=== PATIENT | female | born 1960 | race Caucasian/White ===

== ENCOUNTER → 2020-01-06 | Outpatient (CLI) | payer OTHER, MEDICARE ==
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
== END ==
LOC: M PAIN 13:00
PROVIDERS: ATTEND Nurse Practitioner Family
DX: M96.1 Postlaminectomy syndrome, not elsewhere classified (principal); M79.18 Myalgia, other site; M79.7 Fibromyalgia; K21.9 Gastro-esophageal reflux disease without esophagitis; E03.9 Hypothyroidism, unspecified; E11.9 Type 2 diabetes mellitus without complications; M54.16 Radiculopathy, lumbar region; J30.2 Other seasonal allergic rhinitis; M54.12 Radiculopathy, cervical region; Z79.891 Long term (current) use of opiate analgesic; Z79.84 Long term (current) use of oral hypoglycemic drugs; Z79.899 Other long term (current) drug therapy

== ENCOUNTER → 2020-03-07 | Outpatient (CLI) | payer MEDICARE ==
--- NOTE | 2020-03-09 03:28 | ECWPNPC ---
PATIENT NAME: VALENTINO DAY : 1960 GENDER: FEMALE VISIT DATE: 03/07/2020 DISCHARGE DATE: 03/07/20 1208 VISIT LOCKED DATE TIME: PHYSICIAN: AUDREY ROMERO RESOURCE: AUDREY ROMERO REASON FOR APPOINTMENT 1. MEDICATION MANAGEMENT/URINE TOX HISTORY OF PRESENT ILLNESS DEPRESSION SCREENING: PHQ-2 (2015 EDITION) LITTLE INTEREST OR PLEASURE IN DOING THINGS?NOT AT ALL FEELING DOWN, DEPRESSED, OR HOPELESS?NOT AT ALL TOTAL SCORE0 GENERAL: HERE FOR FOLLOW-UP OF PERSISTENT LOW BACK AND NECK PAIN. THIS IS A MEDICATION MANAGEMENT VISIT AFTER INITIAL VISIT 2 MONTHS AGO. FINDS CURRENT CHRONIC PAIN MEDICATION HELPFUL AT REDUCING PAIN AND KEEPING HER FUNCTIONAL. DENIES ADVERSE SIDE EFFECTS. BRINGS IN HER MEDICATION WHICH DEMONSTRATES SHE IS USING IT APPROPRIATELY. AT THIS POINT SHE WOULD LIKE TO KEEP HER MEDICATION IT IS AND WOULD CONSIDER INJECTIONS IN THE FUTURE IF NECESSARY BUT RIGHT NOW FEELS SHE IS DOING OKAY. SHE WILL BE HAVING RIGHT SHOULDER SURGERY IN THE NEAR FUTURE. -. FALL RISK SCREENING: SCREENING :NO FALLS REPORTED IN THE LAST YEAR PAIN SCREENING: PATIENT HAS A COMPLAINT OF ACUTE OR CHRONIC PAIN :YES LOCATION OF PAIN:UPPER BACK, MID BACK, LOW BACK INTENSITY OF PAIN (SCALE OF 1 TO 10):7 WHAT DOES YOUR PAIN FEEL LIKE:ACHING DURATION:CONTINOUS, CONSTANT, ALL DAY PAIN IS INCREASED BY:ACTIVITIES PAIN IS DECREASED BY:USE OF PAIN MEDICATIONS, OTHERS HEATING PAD TREATMENT/MEDICATIONS USED TO MANAGE PAIN:OPIOIDS LEVEL OF RELIEF FROM PAIN TREATMENTS IN THE PAST:25% PAIN HAS INTERFERED WITH THE FOLLOWING:WALKING ABILITY, SLEEP NURSING NOTE: -. PAIN CENTER INTAKE QUESTIONS: DO YOU HAVE A HISTORY OF MRSA? :NO DO YOU TAKE A BLOOD THINNERS? :NO DO YOU HAVE ANY BLEEDING DISORDERS? :NO ANY NEW NUMBNESS OR WEAKNESS IN YOUR LEGS OR ARMS? :NO ANY PACEMAKER,DEFIBRILLATOR, OR DORSAL COLUMN STIMULATOR? :NO DO YOU HAVE ANY RASHES OR OPEN SORES? :NO ARE YOU ALLERGIC TO IV DYE? :NO ARE YOU DIABETIC? :YES ANY NEW PROBLEMS WITH YOUR MEDICATIONS? :NO HAVE YOU RECEIVED A VACCINE IN THE PAST 30 DAYS? :NO DO YOU PLAN TO RECEIVE A VACCINE IN THE NEXT 21 DAYS? :NO DO YOU NEED ANY PRESCRIPTION? :YES BACLOFEN AND HYDROCODONE DO YOU TAKE ANY IMMUNOSUPPRESSIVE MEDICATIONS? :NO IS THERE A CHANCE YOU COULD BE ? :NO ARE YOU BREAST FEEDING? :NO CURRENT MEDICATIONS TAKING TRAZODONE HCL 100 MG TABLET 1 TABLET AT BEDTIME ORALLY ONCE A DAY TAKING DILTIAZEM HCL ER BEADS 180 MG CAPSULE EXTENDED RELEASE 24 HOUR 1 CAPSULE ORALLY ONCE A DAY TAKING FLECAINIDE ACETATE 100 MG TABLET DIRECTED ORALLY BID TAKING OMEPRAZOLE 20 MG CAPSULE DELAYED RELEASE 1 CAPSULE 30 MINUTES BEFORE MORNING MEAL ORALLY ONCE A DAY TAKING LEVOTHYROXINE SODIUM 150 MCG TABLET 1 TABLET IN THE MORNING ON AN EMPTY STOMACH ORALLY ONCE A DAY TAKING ZYRTEC ALLERGY 10 MG TABLET 1 TABLET ORALLY ONCE A DAY TAKING SUMATRIPTAN SUCCINATE 100 MG TABLET 1 TABLET AT LEAST 2 HOURS BETWEEN DOSES NEEDED ORALLY ONCE A DAY TAKING NAPROXEN 500 MG TABLET 1 TABLET WITH FOOD OR MILK NEEDED ORALLY 1 NEEDED TAKING VENTOLIN HFA 108 (90 BASE) MCG/ACT AEROSOL SOLUTION 1 PUFF NEEDED INHALATION 3 TIMES A DAY TAKING CICLOPIROX 8 % SOLUTION 1 APPLICATION EXTERNALLY ONCE A DAY TAKING SYMBICORT 160-4.5 MCG/ACT AEROSOL 2 PUFFS INHALATION TWICE A DAY TAKING HYOSCYAMINE SULFATE 0.125 MG TABLET DISINTEGRATING 1 TABLET ON THE TONGUE AND ALLOW TO DISSOLVE NEEDED ORALLY EVERY 4 HRS TAKING HYDROCODONE-ACETAMINOPHEN 10-325 MG TABLET 1 TABLET NEEDED ORALLY EVERY 6 HRS WHEN NECESSARY FOR PAIN MDD 4 TAKING BACLOFEN 10 MG TABLET 1 TABLET WITH FOOD OR MILK ORALLY THREE TIMES A DAY NOT-TAKING LASIX 20 MG TABLET 1 TABLET ORALLY ONCE A DAY NOT-TAKING METFORMIN & DIET MANAGE PROD 100MG ORALLY 2 @ AM, 1 @ PM MEDICATION LIST REVIEWED AND RECONCILED WITH THE PATIENT PAST MEDICAL HISTORY CERVICAL RADICULOPATHY LUMBAR RADICULOPATHY FIBROMYALGIA CHRONIC NECK PAIN CHRONIC LOW BACK PAIN GERD HYPOTHYROIDISM DM ALLERGIES SEASONAL: SNEEZING - ALLERGY STEROIDS: ALLERGY SURGICAL HISTORY ACDF C4/C5 C5/C6 LAMINECTOMY AND DISCECTOMY L5/S1 02/2008 CHOLECYSTECTOMY THYROIDECTOMY REPAIR OF DEVIATED SEPTUM C-SECTIONS X2 LEFT KNEE REPLACEMENT PROUD FLESH REMOVED FROM LEFT THUMB FAMILY HISTORY FATHER: MOTHER: 3 SISTER(S) . 2DAUGHTER(S) - HEALTHY. SOCIAL HISTORY GENERAL: TOBACCO USE ARE YOU A:NONSMOKER LATEX QUESTIONNAIRE LATEX ALLERGY : HAVE YOU EVER DEVELOPED ANY TYPE OF REACTION AFTER HANDLING LATEX PRODUCTS SUCH RUBBER GLOVES, CONDOMS, DIAPHRAGMS, BALLOONS, SOCKS, OR UNDERWEAR?NO LATEX ALLERGY : HAVE YOU EVER DEVELOPED ANY TYPE OF REACTION DURING OR AFTER DENTAL APPOINTMENT, VAGINAL/RECTAL EXAMINATION, SURGICAL PROCEDURE, OR ANY OTHER EXPOSURE?NO LATEX RISK : HAVE YOU EVER HAD ANY DIFFICULTY BREATHING OR HIVES AFTER EATING OR HANDLING ANY FRUITS, OR VEGETABLES; SUCH KIWI, BANANAS, STONE FRUITS, OR CHESTNUTSNO LATEX RISK : DO YOU HAVE A PREVIOUS PERSONAL HISTORY OF MORE THAN NINE SURGERIES, SPINA BIFIDA, OR REPEATED CATHERIZATIONS? NO LATEX RISK : ARE YOU FREQUENTLY EXPOSED TO LATEX PRODUCTS IN YOUR OCCUPATION?NO DATE ASKED : 03/07/2020 ALCOHOL SCREENING DID YOU HAVE A DRINK CONTAINING ALCOHOL IN THE PAST YEAR?NO POINTS0 INTERPRETATIONNEGATIVE RECREATIONAL DRUG USE DRUG USE?NO LANGUAGE LANGUAGES SPOKEN:CROATIAN LEARNING BARRIERS / SPECIAL NEEDS BARRIERS TO LEARNING?NO HEARING IMPAIRED?NO VISION IMPAIRED?YES :CORRECTIVE LENSES COGNITIVELY IMPAIRED?NO READINESS TO LEARN?YES LEARNING PREFERENCES?NO LEARNING CAPABILITIES PRESENT?YES EMOTIONAL BARRIERS?NO SPECIAL DEVICES?NO DOMESTIC VIOLENCE DO YOU FEEL SAFE IN YOUR ENVIRONMENT?YES PAIN CLINIC PFS, CLERGY, PUBLIC HEALTH REFERRALS HAS THE PATIENT BEEN EDUCATED REGARDING HIS/HER PLAN OF CARE?YES HAS THE PATIENT BEEN EDUCATED REGARDING PAIN, THE RISK FOR PAIN, THE IMPORTANCE OF EFFECTIVE PAIN MANAGEMENT, AND THE PAIN ASSESSMENT PROCESS?YES ADVANCE DIRECTIVE ADVANCE DIRECTIVE DISCUSSED WITH PATIENT:YES DELINED PAPERWORK HOSPITALIZATION/MAJOR DIAGNOSTIC PROCEDURE SURGERY RELATED REVIEW OF SYSTEMS CONSTITUTIONAL: ANY RECENT FEVER NO . CHILLS NO . WEIGHT CHANGE OF UNKNOWN REASONS NO . GASTROENTEROLOGY: NEW UNEXPLAINABLE CHANGES IN BOWEL CONTROL NO . CONSTIPATION NO . GENITOURINARY: ANY NEW CHANGE IN BLADDER CONTROL? NO . NEUROLOGY: NEW ONSET DIZZINESS OR NEUROLOGICAL CHANGES NOT MENTIONED NO . NEW NUMBNESS OR PAIN PATTERNS NOT MENTIONED AND PERTINENT TO TODAY'S VISIT NO . CARDIOLOGY: NEW CHEST PRESSURE NO . NEW CHEST PAIN NO . RESPIRATORY: UNEXPLAINABLE COUGH NO . NEW SHORTNESS OF BREATH NO . VITAL SIGNS WT 269 LBS, HT 69.34 IN, BMI 39.33 INDEX, BP 128/80 MM HG, HR 83 /MIN, RR 18 /MIN, TEMP 97.5 F, OXYGEN SAT % 98%, SAFE IN ENV? (Y/N) YES, NA INITIALS GA 11:14, REVIEWED BY: TORRES MARCOS. EXAMINATION GENERAL EXAMINATION: GENERALAWAKE,ALERT ,PLEASANT . PSYCHAFFECT NORMAL . LUNGS:LUNG MOLINA ARE CLEAR TO AUSCULTATION BILATERALLY. GOOD MOVEMENT OF AIR . HEART:S1, S2 IN A REGULAR RATE AND RHYTHM. NO SIGNIFICANT MURMURS, RUBS OR GALLOPS NOTED . ASSESSMENTS POST LAMINECTOMY SYNDROME - M96.1 (PRIMARY) CHRONIC PRESCRIPTION OPIATE USE - Z79.891 MYALGIA, OTHER SITE - M79.18 TREATMENT POST LAMINECTOMY SYNDROME REFILL HYDROCODONE-ACETAMINOPHEN TABLET, 10-325 MG, 1 TABLET NEEDED, ORALLY, EVERY 6 HRS WHEN NECESSARY FOR PAIN MDD 4, 30 DAYS, 120, REFILLS 0 NOTES: ISTOP REGISTRY REVIEWED AND DEMONSTRATES COMPLLIANCE. BRINGS IN MEDICATIONS WHICH IS APPROPRIATE FOR WHAT WAS DISPENSED. URINE TOXICOLOGY TODAY , RISKS OF NARCOTIC/OPIOD MEDICATIONS INCLUDES BUT IS NOT LIMITED TO RISK OF DEPENDANCE/DEVELOPMENT OF ADDICTION, MOOD DISTURBANCE AND DEPRESSION, OSTEOPOROSIS, HORMONAL AND LABIDAL CHANGES, RESPIRATORY DEPRESSION AND . PATIENT IS ADVISED NOT TO DRIVE OR DRINK ALCOHOL WHILE ON THESE MEDICATIONS. PROCEDURE CODES FA211 ESTABILISHED PATIENT [facility] CHARGE DISPOSITION & COMMUNICATION FOLLOW UP 3 MONTHS (REASON: MEDICATION MANAGEMENT/REVIEW URINE TOXICOLOGY) ELECTRONICALLY SIGNED BY NELLY ANDINO ON 03/08/2020 AT 11:03 AM EST DISCLAIMER : THIS IS A VISIT SUMMARY EXTRACTED FROM THE [employer] CHART. IT IS NOT A COPY OF THE [employer] PROGRESS NOTE. JENNA
== END ==
LOC: M PAIN 11:00
PROVIDERS: ATTEND Nurse Practitioner Family
DX: M96.1 Postlaminectomy syndrome, not elsewhere classified (principal); M79.18 Myalgia, other site; M79.7 Fibromyalgia; K21.9 Gastro-esophageal reflux disease without esophagitis; E03.9 Hypothyroidism, unspecified; E11.9 Type 2 diabetes mellitus without complications; J30.2 Other seasonal allergic rhinitis; M54.16 Radiculopathy, lumbar region; M54.12 Radiculopathy, cervical region; Z79.891 Long term (current) use of opiate analgesic; Z79.899 Other long term (current) drug therapy; Z88.8 Allergy status to other drugs, medicaments and biological substances

== ENCOUNTER → 2020-03-07 | Outpatient (CLI) | payer MEDICARE ==
[~2020-03-07] MED LIST: BACL10TA8 PO; CICL0.7739 TOP; DILT180C28 PO; FLEC1TAB PO; FURO20TA2 PO; HYDR-4517 PO; HYOS125TA SL; METF-839 PO; NAPR-885 PO; OMEP-218 PO; SUMA100T2 PO; SYMB16INH INH; TRAZ-257 PO
--- NOTE | 2020-03-09 16:05 | SLEEPHOME ---
DATE: 03/07/2020 ORDERED BY: Dr. Spencer Diagnostic home sleep testing was performed due to concern for the obstructive sleep apnea syndrome in this patient with a history of snoring. For testing, a nocturnal T3 respiratory monitoring device was used. Continuous record was made of pulse, oxygen saturation, air flow, chest and abdominal strain, and body position. There was 9 hours and 59 minutes of data reviewed. There was 8 hours and 27 minutes marked as time in bed. During the interval marked time in bed, there were 218 respiratory events identified of 10 seconds in duration or greater for an respiratory event index of 25.8. The events were primarily obstructive. Baseline pulse rate 91. Pulse rate ranged as high as 199. Baseline saturation 88%. Saturations fell to 81%. Testing was performed in both the supine and nonsupine positions. IMPRESSION: Abnormal home sleep testing with repetitive respiratory events and oxygen desaturations to 81% with a respiratory event index of 25.8 is consistent with the obstructive sleep apnea syndrome. RECOMMENDATION: The patient should be encouraged to undergo formal sleep evaluation.
== END ==
LOC: M SLEEP HO 12:43
PROVIDERS: ATTEND Internal Medicine Cardiovascular Disease
DX: R06.83 Snoring (principal)
CPT/HCPCS: G0399; G0463

== ENCOUNTER → 2020-03-12 | Outpatient (CLI) | payer MEDICARE | LOC: M LABSMTC 09:27 | PROVIDERS: ATTEND Anesthesiology | DX: Z01.812 Encounter for preprocedural laboratory examination (principal); Z20.822 Contact with and (suspected) exposure to COVID-19 ==

== ENCOUNTER 2020-03-17 12:33 | Day surgery (SDC) | payer MEDICARE ==
[~2020-03-17] VITALS: Ht 175.3 cm; Wt 124.7 kg
--- OUTSIDE RECORDS SUMMARY | 2020-03-17 12:37 | CCD ---
Author Author [employer] [facility] Organization [employer] [facility] Address Unknown Phone Unavailable Care Team Providers Care Assembly Associate Name Role Phone Ana Carpenter Unavailable PROBLEMS Type Condition ICD9-CM Code [id number] Code Onset Dates Condition S tatus SNOMED Code Notes Problem Post laminectomy syndrome M96.1 Active [id number] [id number] ALLERGIES Allergen (clinical drug ingredient) Drug/Non Drug Allergy do cumented on EMR Reaction Allergy Type Onset Date Status seasonal sneezing Non Drug Allergy Active ENCOUNTERS from 1960 to 2020-01-07 Encounter Location Date Provider Diagnosis [facility] [address] [place] [id number] Dec, Ana Carpenter Post laminectomy syndrome M96.1 ; Chroni c prescription opiate use Z79.891 and Myalgia, other site M79.18 IMMUNIZATIONS No Information SOCIAL HISTORY Tobacco Use: Social History Observation Description Date Details (start date - stop date) Never Smoker Sex Assigned At : Social History Observation Description Sex Assigned At Unknown Language: Question Answer Notes Languages spoken: Tajik Alcohol Screening: Question Answer Notes Did you have a drink containing alcohol in the past year? No Points 0 Interpretation Negative Tobacco Use: Question Answer Notes Are you a: never smoker REASON FOR REFERRAL No Information VITAL SIGNS Weight 271 lbs Dec, Height 69.34 in Dec, BMI 39.62 kg/m2 Dec, Heart Rate 78 /min Dec, Respiratory Rate 16 /min Dec, Temperature 97.5 degrees Fahrenheit Dec, Oximetry 96 Dec, Blood pressure systolic 136 mm Hg Dec, Blood pressure diastolic 77 mm Hg Dec, MEDICATIONS Medication SIG (Take, Route, Frequency, Duration) Start Date En d Date Status Lasix 20 MG 1 tablet Orally Once a day for 30 day(s) Active Levothyroxine Sodium 150 MCG 1 tablet in the morning o n an empty stomach Orally Once a day for 30 day(s) Active Hyoscyamine Sulfate 0.125 MG 1 tablet on the tongue an d allow to dissolve as needed Orally every 4 hrs Active Metformin & Diet Manage Prod 100mg orally 2 @ am, 1 @ PM Active Ciclopirox 8 % 1 application Externally Once a day Active Hydrocodone-Acetaminophen 10-325 MG 1 tablet as needed Orally every 6 hrs when necessary for pain MDD 4 for 30 Days Dec, Act gabino TraZODone HCl 100 MG 1 tablet at bedtime Orally Once a day for 30 d ay(s) Active Naproxen 500 MG 1 tablet with food or milk as needed Orally every 1 2 hrs Active Sumatriptan Succinate 100 MG 1 tablet at least 2 hours between doses as needed Orally Twice a day Active Symbicort 160-4.5 MCG/ACT 2 puffs Inhalation Twice a day Active Flecainide Acetate 100 MG as directed Orally bid Active Diltiazem HCl ER Beads 180 MG 1 capsule Orally Once a day for 30 da y(s) Active Zyrtec Allergy 10 MG 1 tablet Orally Once a day for 30 day(s) Active Ventolin HFA 108 (90 Base) MCG/ACT 1 puff as needed Inhalation ever y 4 hrs Active Baclofen 10 MG 1 tablet with food or milk Orally Three times a day for 30 Days Active Omeprazole 20 MG 1 capsule 30 minutes before morning meal Orally Once a day for 30 day(s) Active PROCEDURES No Information RESULTS No Results REASON FOR VISIT CHRONIC PAIN MEDICAL (GENERAL) HISTORY Type Description Date Medical History cervical radiculopathy Medical History lumbar radiculopathy Medical History fibromyalgia Medical History Chronic Neck Pain Medical History Chronic Low Back Pain Medical History GERD Medical History Hypothyroidism Medical History DM Surgical History ACDF C4/C5 C5/C6 Surgical History Laminectomy and Discectomy L5/S1 02/2008 Surgical History cholecystectomy Surgical History thyroidectomy Surgical History repair of deviated septum Surgical History C-sections x2 Surgical History Left knee replacement Surgical History Proud flesh removed from left thumb Hospitalization History surgery related Goals Section No Information Health Concerns No Information MEDICAL EQUIPMENT No Information MENTAL STATUS No Information FUNCTIONAL STATUS No Information ASSESSMENTS Encounter Date Diagnosis Notes Dec, Myalgia, other site (ICD-10 - M79.18) Dec, Chronic prescription opiate use (ICD-10 - Z79.891) Dec, Post laminectomy syndrome (ICD-10 - M96. 1) PLAN OF TREATMENT Medication Medication Name Sig Start Date Stop Date Baclofen 10 MG 1 tablet with food or milk Orally Three times a day for 30 Days Hydrocodone-Acetaminophen 10-325 MG 1 tablet as needed Orally every 6 hrs when necessary for pain MDD 4 for 30 Days Dec, Treatment Notes Assessment Notes Clinical Notes Post laminectomy syndrome I've agreed to take over andi n medication management. Discussed clinic policies on chronic prescription opioid use. Narcotic agreement is reviewed and signed. Follow-up is scheduled in 2 months.DO PHQ2 AT F/U APT ON 03/07/2020 Next Appt Details 2 Months Reason:medication management/ur ine tox Provider Name:Ana Carpenter, 2020-03-07 11 :00:00 AM, [address], [place], [id number], Follow Up:2 Monthsmedication management/urine tox Insurance Providers Payer Name Payer Address Payer Phone Insured Name Patient Relati onship to Insured Coverage Start Date Coverage End Date [employer] [id number] [facility] [id number] VAL[address] DAY MEDICARE Part A and B [address] [facility] [id number] [phone] VALENTINO DAY
--- OUTSIDE RECORDS SUMMARY | 2020-03-17 12:37 | CCD ---
Continuity of Care Document (CCD) Created on: 01/29/2020 Dorothea Moore External Reference #: [id number] : [id number] Sex: Female Author Author Dorothea BLOCK FILTRATION PLANT MECHANIC Organization Unknown Address [address] [place] [address] Phone [phone] Care Team Providers Care Cuff Slitter Name Role Phone Álvaro López AUTM [phone] [facility] Nurse Practitioners - Dermatology AUTM [phone] [facility] - Ophthalmic AUTM [phone] [facility] - Cardiovascular Disease AUTM [phone] Karin Jamison M.D. AUTM [phone] Problems Active Problems Provider Date Type 2 diabetes mellitus Rossana Block FNP Onset: 020 Hypothyroidism Rossana Block FILTRATION PLANT MECHANIC Onset: 01/20/2020 Mild intermittent asthma Rossana Block FILTRATION PLANT MECHANIC Onset: 020 Paroxysmal supraventricular tachycardia Rossana Block FILTRATION PLANT MECHANIC Onset: 01/20/2020 Fibromyalgia Rossana Block FILTRATION PLANT MECHANIC Onset: 01/20/2020 Social History Type Date Description Comments Sex Unknown Tobacco Use Start: Unknown Never Used Smokeless Tobacco ETOH Use Denies alcohol use Tobacco Use Start: Unknown End: Patient is a former smoker 4 year hx total Recreational Drug Use Denies Drug Use Smoking Status Reviewed: 01/18/20 Patient is a former smoker 4 year hx total Exercise Type/Frequency Exercises regularly Tattoo/Piercing Pierced ears Sun Exposure Moderate amount of sun exposure Sun Exposure Has experienced blistering from sunburns Sun Exposure History of sunburn Sun Exposure Uses sunscreen Sun Exposure Uses greater than 30 SPF Sun Exposure Does not use tanning beds Seat Belt/Car Seat Always uses seat belt Smoke Alarms Yes Smoke Alarms Carbon Monoxide Detector: Yes Allergies, Adverse Reactions, Alerts Active Allergies Reaction Severity Comments Date Penicillins Difficulty breathing, Diffic ulty swallowing, Facial swelling, hand swelling Severe 01/18/2020 Biaxin Diarrhea Severe 01/18/2020 Medications Active Medications SIG Qnty Indications Ordering Provide r Date Symbicort 160-4.5mcg/Act Aerosol 2 puff twice a day 18gm J45.20 Rossana Block FNP 01/18/2020 Hydrocodone-Acetaminophen 10-325mg Tablets 1 tab by mouth every 6 hours if needed for pain Unknown Baclofen 10mg Tablets take 1 tablet by mouth every 8 hours as needed for muscle spasm U nknown Trazodone HCL 100mg Tablets 1 tab by mouth every night at bedtime 90tabs Rossana Block FNP 00/ Metformin HCL XR 500mg 2 tabs by mouth in the morning and 1 tab by mouth in evening Unknow n Diltiazem HCL ER 180mg Caps ER 24H R 1 by mouth every day 90caps Rossana Block FNP Flecainide Acetate 100mg Tablets take one tablet by mouth twice a day 180tabs Rossana Block FNP Omeprazole 20mg Capsules DR 1 by mouth twice a day 180caps Rossana Block FNP Levothyroxine Sodium 150mcg Tablet s 1 by mouth every day 90tabs Rossana Block FNP Furosemide 20mg Tablets take one tablet by mouth every day in the morning Unknown 0 Zyrtec Allergy 10mg Capsules 1 by mouth every day Unknown Sumatriptan Succinate 100mg Tablet s one tab by mouth at onset of headache, repeat once in one hour if needed 30tabs Rossana Block FNP Naproxen 500mg Tablets take 1 tab by mouth twice a day with food as needed for pain Unknown Ventolin HFA 108(90Base) mcg/Act A erosol 2 puffs every 4 hours as needed Unknown Ciclopirox Olamine 0.77% Cream apply twice a day to the affected areas of breast as needed Unknown Hyoscyamine Sulfate 0.125mg Tablet s 1 tabs by mouth q8 hours as needed Unknown Immunizations Description No Information Available Vital Signs Date Vital Result Comment 01/18/2020 9:32am BP Systolic 119 mmHg BP Diastolic 75 mmHg Heart Rate 75 /min Body Temperature 97.8 F Respiratory Rate 17 /min Height 69.75 inches 5'9.75" Weight 275.12 lb O2 % BldC Oximetry 99 % Peak Expiratory Flow Rate 379 Estimated Peak Flow Rate [place] Body Weight 145 lb BMI (Body Mass Index) 39.8 kg/m2 Results Description No Information Available Procedures Date Code Description Status 08/26/2019 461629575 Diabetic Foot Exam Completed Medical Devices Description No Information Available Encounters Type Date Location Provider Dx Diagnosis Office Visit 01/18/2020 10:00a Main Office Rossana Block, FILTRATION PLANT MECHANIC E11.9 Type 2 diabetes mellitus without complications E03.9 Hypothyroidism, unspecified J45.20 Mild intermittent asthma, un complicated K21.9 Gastro-esophageal reflux dis ease without esophagitis G43.909 Migraine, unsp, not intracta ble, without status migrainosus K58.2 Mixed irritable bowel syndro me I47.1 Supraventricular tachycardia Z85.828 Personal history of other ma lignant neoplasm of skin M79.7 Fibromyalgia Z13.89 Encounter for screening for other disorder Assessments Date Code Description Provider 01/18/2020 E11.9 Type 2 diabetes mellitus without complications Rossana Block, FILTRATION PLANT MECHANIC 01/18/2020 E03.9 Hypothyroidism, unspecified Ples Rossana rocha, FILTRATION PLANT MECHANIC 01/18/2020 J45.20 Mild intermittent asthma, uncomp licated PleRossana curtis, FILTRATION PLANT MECHANIC 01/18/2020 K21.9 Gastro-esophageal reflux disease without esophagitis Rossana Block, FILTRATION PLANT MECHANIC 01/18/2020 G43.909 Migraine, unspecifie d, not intractable, without status migrainosus PleRossana curtis, FILTRATION PLANT MECHANIC 01/18/2020 K58.2 Mixed irritable bowel syndrome P lesRossana rocha, FILTRATION PLANT MECHANIC 01/18/2020 I47.1 Supraventricular tachycardia Ple skRossana najera, FILTRATION PLANT MECHANIC 01/18/2020 Z85.828 Personal history of other malign ant neoplasm of skin Rossana Block FNP 01/18/2020 M79.7 Fibromyalgia Rossana Block FNP 01/18/2020 Z13.89 Encounter for screening for othe r disorder Rossana Block FNP Plan of Treatment Future Appointment(s):* 07/19/2020 10:30 am - Rossana Block FNP at Main Office 01/18/2020 - Rossana Block FNP* E11.9 Type 2 diabetes mellitus without complications* Comments:* per patient, well controlled, last A1C was under 6. Continue metformin and recheck A1C and microalbumin at next visit. Patient follows with podiatry for diabetic foot care, will need local referral. * Follow up:* 6 months with labs * E03.9 Hypothyroidism, unspecified* Comments:* continue levothyroxine, check labs at next visit * J45.20 Mild intermittent asthma, uncomplicated* New Medication:* Symbicort 160-4.5 mcg/Act - 2 puff twice a day * Comments:* controlled on symbicort, using ventolin as needed which is rare. * K21.9 Gastro-esophageal reflux disease without esophagitis* Comments:* well controlled with omeprazole * G43.909 Migraine, unspecified, not intractable, without status migrainosus* Comments:* patient reports average of one a month, relieved with sumatriptan and naproxen * K58.2 Mixed irritable bowel syndrome* Comments:* using hyoscyamine with effect. Has had GI consult, testing and colonoscopy in the recent past - all normal * I47.1 Supraventricular tachycardia* Comments:* follows with cardiology, will need local referral * Z85.828 Personal history of other malignant neoplasm of skin* Comments:* follows annually with dermatology, will need local referral * M79.7 Fibromyalgia* Comments:* established with pain clinic * Z13.89 Encounter for screening for other disorder Functional Status Functional Condition Comment Date Status Glasses otc readers Active Independent with all ADL's Activ e Independent with all IADL's Acti ve Mental Status Mental Condition Comment Date Status None Active Can Understand Information Activ e Referrals Refer to Reason for Referral Status Appt Karin Arambula M.D. needs to establish with help desk intern for issues of pain during intercourse per telephone call from pt Sent [address] [address] [phone] [facility] hx of svt, pt just rel[place] to [place] and needs to establish with a dimpling machine operator Sent [address] [place] [address] [place] [address] [phone] Álvaro López needs to establish with sephora operations consultant for d iabetic foot care Scheduled 02/29/2020 [address] [place] [address] [phone] [facility] Nurse Practitioners personal hx of malignant neoplasm Sent 03/08/2020 [address] [facility] [address], [address] [place] [address] [phone] [facility] pt needs to esta blish with opthamologist for diabetic eye exam Sent [address] [address] [phone]
--- OUTSIDE RECORDS SUMMARY | 2020-03-17 12:37 | CCD | Continuity of Care Document ---
Author Author Dorothea LÓPEZ DPM Organization Unknown Address [address] [facility], [address] [place] [address] Phone [phone] Care Team Providers Care Supervisor Water Softener Service Name Role Phone Jerilyn Block AUTM [phone] Problems Description No Information Available Social History Type Date Description Comments Sex Unknown ETOH Use Denies alcohol use Tobacco Use Start: Unknown End: Unknown Patient is a former smoker Allergies, Adverse Reactions, Alerts Active Allergies Reaction Severity Comments Date Penicillins 02/29/2020 Biaxin 02/29/2020 Medications Active Medications SIG Qnty Indications Ordering Provide r Date Metformin HCL ER 500mg Tablets ER 24HR Take 2 Tablets By Mouth Every Morning And Take 1 Tablet By Mouth Every Evening Unknown Furosemide 20mg Tablets Take 1 Tablet By Mouth Every Day In The Morning Unknown 0 Baclofen 10mg Tablets Take 1 Tablet By Mouth Three Times Daily With Food Or Milk Unknow n Sumatriptan Succinate 100mg Tablet s TK 1 T PO Aos Of Headache. Repeat 1 Time In 1 Hour If Needed. MDD 2 Tablets Unknown Levothyroxine Sodium 150mcg Tablet s TK 1 T PO qd Unknown Flecainide Acetate 100mg Tablets TK 1 T PO bid Unknown Dilt-XR 180mg Caps ER 24HR TK 1 C PO qd Unknown Omeprazole 20mg Capsules DR TK 1 C PO bid Unknown Trazodone HCL 100mg Tablets TK 1 T PO QHS Unknown Hydrocodone-Acetaminophen 10-325mg Tablets TK 1 T PO Q 6 H PRF Pain. MDD 4 TS Unknow n Immunizations Description No Information Available Vital Signs Date Vital Result Comment 02/29/2020 8:42am Height 69.75 inches 5'9.75" Weight 275.00 lb BP Systolic 119 mmHg BP Diastolic 75 mmHg Heart Rate 75 /min BMI (Body Mass Index) 39.7 kg/m2 Results Description No Information Available Procedures Description No Information Available Medical Devices Description No Information Available Encounters Description No Information Available Assessments Description No Information Available Plan of Treatment Future Appointment(s):* 02/28/2021 3:15 pm - Álvaro López DPM at [place] Office Functional Status Description No Information Available Mental Status Description No Information Available Referrals Description No Information Available
--- OUTSIDE RECORDS SUMMARY | 2020-03-17 12:37 | CCD | Continuity of Care Document ---
Author Author Dorothea BLOCK BEARING RING ASSEMBLER Organization Unknown Address [address] [place] [address] Phone [phone] Care Team Providers Care Contact Center Professional Name Role Phone Álvaro López AUTM [phone] [facility] Nurse Practitioners - Dermatology AUTM [phone] [facility] - Ophthalmic AUTM [phone] [facility] - Cardiovascular Disease AUTM [phone] Karin Jamison M.D. AUTM [phone] Problems Active Problems Provider Date Type 2 diabetes mellitus Rossana Block FNP Onset: 020 Hypothyroidism Rossana Block BEARING RING ASSEMBLER Onset: 01/20/2020 Mild intermittent asthma Rossana Block BEARING RING ASSEMBLER Onset: 020 Paroxysmal supraventricular tachycardia Rossana Block BEARING RING ASSEMBLER Onset: 01/20/2020 Fibromyalgia Rossana Block BEARING RING ASSEMBLER Onset: 01/20/2020 Social History Type Date Description [...] Flow Rate 379 Estimated Peak Flow Rate [place] Body Weight 145 lb BMI (Body Mass Index) 39.8 kg/m2 Results Description No Information Available Procedures Date Code Description Status 08/26/2019 [id number] Diabetic Foot Exam Completed Medical Devices Description No Information Available Encounters Type Date Location Provider Dx Diagnosis Office Visit 01/18/2020 10:00a Main Office Rossana Block, BEARING RING ASSEMBLER E11.9 Type 2 diabetes mellitus without complications [...] 2 diabetes mellitus without complications Rossana Block, BEARING RING ASSEMBLER 01/18/2020 E03.9 Hypothyroidism, unspecified Ples Rossana rocha, BEARING RING ASSEMBLER 01/18/2020 J45.20 Mild intermittent asthma, uncomp licated PleRossana curtis, BEARING RING ASSEMBLER 01/18/2020 K21.9 Gastro-esophageal reflux disease without esophagitis Rossana Block, BEARING RING ASSEMBLER 01/18/2020 G43.909 Migraine, unspecifie d, not intractable, without status migrainosus PleRossana curtis, BEARING RING ASSEMBLER 01/18/2020 K58.2 Mixed irritable bowel syndrome P lesRossana rocha, BEARING RING ASSEMBLER 01/18/2020 I47.1 Supraventricular tachycardia Ple skRossana najera, BEARING RING ASSEMBLER 01/18/2020 Z85.828 Personal history of other malign [...] Karin Arambula M.D. needs to establish with ob gyn physician assistant for issues of pain during intercourse per telephone call from pt Sent [address] [address] [phone] [facility] hx of svt, pt just reloca [place] to [place] and needs to establish with a senior actuarial analyst Sent [address] [place] [place] [address] [phone] Álvaro López needs to establish with physicist solid state for d iabetic foot care Scheduled 02/29/2020 [address] [place] [address] [phone] [facility] Nurse Practitioners personal hx of malignant neoplasm Sent 03/08/2020 [address] [facility] [address], [address] [place] [address] [phone] [facility] pt needs to esta blish with opthamologist for diabetic eye exam Sent [address] [address] [phone]
--- OUTSIDE RECORDS SUMMARY | 2020-03-17 12:37 | CCD | Continuity of Care Document ---
Author Author Dorothea BLOCK BINDERY MACHINE OPERATOR Organization Unknown Address [address] [place] [address] Phone [phone] Care Team Providers Care Brand Ambassador Promotional Model Name Role Phone Álvaro López AUTM [phone] [facility] Nurse Practitioners - Dermatology AUTM [phone] [facility] - Ophthalmic AUTM [phone] Problems Description No Information Available Social History [...] tab by mouth every night at bedtime Unknown 0 Metformin HCL XR 500mg 2 tabs by mouth in the morning and 1 tab by mouth in evening Unknow n Diltiazem HCL ER 180mg Caps ER 24H R 1 by mouth every day Unknown Flecainide Acetate 100mg Tablets take one tablet by mouth twice a day Unknown Omeprazole 20mg Capsules DR 1 by mouth bid Unknown Levothyroxine Sodium 150mcg Tablet s 1 by mouth every day Unknown Furosemide 20mg Tablets take one tablet by mouth every day in the morning Unknown 0 Zyrtec Allergy 10mg Capsules 1 by mouth every day Unknown Sumatriptan Succinate 100mg Tablet s one tab by mouth at onset of headache, repeat once in one hour if needed Unknown Naproxen 500mg Tablets take 1 tab by [...] Flow Rate 379 Estimated Peak Flow Rate [place] Body Weight 145 lb BMI (Body Mass Index) 39.8 kg/m2 Results Description No Information Available Procedures Date Code Description Status 08/26/2019 [id number] Diabetic Foot Exam Completed Medical Devices Description No Information Available Encounters Type Date Location Provider Dx Diagnosis Office Visit 01/18/2020 10:00a Main Office Pleskach, Rossana, BINDERY MACHINE OPERATOR E11.9 Type 2 diabetes mellitus without complications [...] Type 2 diabetes mellitus without complications Rossana Block FNP 01/18/2020 E03.9 Hypothyroidism, unspecified [place] Rossana rocha, NELLY 01/18/2020 J45.20 Mild intermittent asthma, uncomp licated Rossana Block, BINDERY MACHINE OPERATOR 01/18/2020 K21.9 Gastro-esophageal reflux disease without esophagitis Rossana Block FNP 01/18/2020 G43.909 Migraine, unspecifie d, not intractable, without status migrainosus Rossana Block, BINDERY MACHINE OPERATOR 01/18/2020 K58.2 Mixed irritable bowel syndrome P Rossana gama, NELLY 01/18/2020 I47.1 Supraventricular tachycardia Rossana James, NELLY 01/18/2020 Z85.828 Personal history of other malign ant neoplasm of skin Rossana Block FNP 01/18/2020 M79.7 Fibromyalgia Rossana Block FNP 01/18/2020 Z13.89 Encounter for screening for othe r disorder Rossana Block FNP Plan of Treatment Future Appointment(s):* 07/19/2020 10:30 am - Rossana Block FNP at Main Office 01/18/2020 - Rossana Block FNP* E11.9 Type 2 diabetes mellitus without complications* New Labs:* CBC With Differential, Scheduled: 06/27/20 * Comprehensive Metabolic Profil, Scheduled: 06/27/20 * Hemoglobin A1c, Scheduled: 06/27/20 * Lipid Panel, Scheduled: 06/27/20 * TSH And T4 Free (Rudy), Scheduled: 06/27/20 * Microalbumin Random, Scheduled: 06/27/20 * Vitamin D 25-Hydroxy, Scheduled: 06/27/20 * Comments:* per patient, well controlled, last A1C [...] Refer to Reason for Referral Status Appt Date Álvaro López needs to establish with hotel administrative assistant for diabetic foot care Sent [address] [place] [address] [phone] [facility] Nurse Practitioners personal hx of malignant neoplasm [place] [address] [facility] [address], [address] [place] [address] [phone] [facility] pt needs to esta blish with opthamologist for diabetic eye exam Sent [address] [facility] [address] [phone]
--- OUTSIDE RECORDS SUMMARY | 2020-03-17 12:37 | CCD ---
Author Author [employer]ond[employer] [facility] [employer] Organization [facility] [employer] Address Unknown Phone Unavailable Care Team Providers Care Employment Coach Name Role Phone Verona Carpentern Unavailable PROBLEMS Type Condition ICD9-CM Code [id number] Code Onset Dates Condition S tatus SNOMED Code Notes Problem Post laminectomy syndrome M96.1 Active 632756 [id number] ALLERGIES Allergen (clinical drug ingredient) Drug/Non Drug Allergy do cumented on EMR Reaction Allergy Type Onset Date Status seasonal sneezing Non Drug Allergy Active ENCOUNTERS from 1960 to 2020-01-06 Encounter Location Date Provider Diagnosis [facility] [address] [place] [id number] Dec, Ana Carpenter IMMUNIZATIONS No Information SOCIAL HISTORY Tobacco Use: Social History Observation Description Date Details (start date - stop date) Never Smoker Sex Assigned At : Social History Observation Description Sex Assigned At Unknown Language: Question Answer Notes Languages spoken: Serbian Alcohol Screening: Question Answer Notes Did you have a drink containing alcohol in the past year? No Points 0 Interpretation Negative Tobacco Use: Question Answer Notes Are you a: never smoker REASON FOR REFERRAL No Information VITAL SIGNS No information MEDICATIONS Medication SIG (Take, Route, Frequency, Duration) [...] Information RESULTS No Results REASON FOR VISIT [facility] MEDICAL (GENERAL) HISTORY Type Description Date Medical [...] No Information FUNCTIONAL STATUS No Information ASSESSMENTS No Information PLAN OF TREATMENT Medication Medication Name Sig Start Date Stop Date Baclofen 10 MG 1 tablet with food or milk Orally Three times a day for 30 Days Hydrocodone-Acetaminophen 10-325 MG 1 tablet as needed Orally every 6 hrs when necessary for pain MDD 4 for 30 Days Dec, Next Appt Details Provider Name:Ana Carpenter, 2020-03-07 11 :00:00 AM, [address] [place], [address], Insurance Providers Payer Name Payer Address Payer Phone Insured Name Patient Relati onship to Insured Coverage Start Date Coverage End Date MEDICARE Part A and B [address] [facility] [id number] [place] [employer] [id number] [facility] [id number] [place] self
--- OUTSIDE RECORDS SUMMARY | 2020-03-17 12:37 | CCD | Continuity of Care Document ---
Author Author Dorothea LÓPEZ DPM Organization Unknown Address [address] [place] [address], [address] [place] [address] Phone [phone] Care Team Providers Care Brusher Warp Name Role Phone Jerilyn Block AUTM [phone] Problems Active Problems Provider Date Hammer toe Álvaro López DPM Onset: 03/03/2020 Type 2 diabetes mellitus Álvaro López DPM Onset: 021 History of amputation of right lesser toe Álvaro López, Melvin PM Onset: 03/03/2020 Social History Type Date Description Comments Sex [...] Date Location Provider Dx Diagnosis Office Visit 02/29/2020 3:30p [place] [facility] Álvaro López DPM M20.40 Other hammer toe(s) (acquired), unspecified foot Z89.421 Acquired absence of other ri ght toe(s) E11.9 Type 2 diabetes mellitus wit hout complications Assessments Date Code Description Provider 02/29/2020 M20.40 Other hammer toe(s) (acquired), unspecified foot Álvaro López DPM 02/29/2020 Z89.421 Acquired absence of other right toe(s) Álvaro López DPM 02/29/2020 E11.9 Type 2 diabetes mellitus without complications Álvaro López DPM Plan of Treatment Future Appointment(s):* 02/28/2021 3:15 pm - Álvaro López DPM at [facility] Functional Status Description No Information Available Mental Status Description No Information Available Referrals Description No Information Available
--- OUTSIDE RECORDS SUMMARY | 2020-03-17 12:37 | CCD | Continuity of Care Document ---
Author Author Dorothea BLOCK [facility] Organization Unknown Address [address] [place] [address] Phone [phone] Problems Description No Information Available Social History [...] Flow Rate 379 Estimated Peak Flow Rate [place] Body Weight 145 lb BMI (Body Mass Index) 39.8 kg/m2 Results Description No Information Available Procedures Date Code Description Status 08/26/2019 [id number] Diabetic Foot Exam Completed Medical Devices Description No Information Available Encounters Description No Information Available Assessments Date Code Description Provider 01/18/2020 G43.909 Migraine, unspecifie d, not intractable, without status migrainosus Rossana Block FNP 01/18/2020 K58.2 Mixed irritable bowel syndrome P Rossana gama FNP 01/18/2020 I47.1 Supraventricular tachycardia Rossana James FNP 01/18/2020 E03.9 Hypothyroidism, unspecified Ples Rossana rocha, [employer] 01/18/2020 E11.9 Type 2 diabetes mellitus without complications Rossana Block, [employer] 01/18/2020 Z85.828 Personal history of other malign ant neoplasm of skin Rossana Block, [employer] 01/18/2020 J45.20 Mild intermittent asthma, uncomp licated Rossana Block, [employer] 01/18/2020 M79.7 Fibromyalgia Rossana Block, [employer] 01/18/2020 K21.9 Gastro-esophageal reflux disease without esophagitis Mckayla Rossana, [employer] Plan of Treatment 01/18/2020 - Rossana Block FNP* G43.909 Migraine, unspecified, not intractable, without status migrainosus * K58.2 Mixed irritable bowel syndrome * I47.1 Supraventricular tachycardia * E03.9 Hypothyroidism, unspecified * E11.9 Type 2 diabetes mellitus without complications* New Labs:* CBC With Differential, Scheduled: 06/27/20 * Comprehensive Metabolic Profil, Scheduled: 06/27/20 * Hemoglobin A1c, Scheduled: 06/27/20 * Lipid Panel, Scheduled: 06/27/20 * TSH And T4 Free (Rudy), Scheduled: 06/27/20 * Microalbumin Random, Scheduled: 06/27/20 * Vitamin D 25-Hydroxy, Scheduled: 06/27/20 * Follow up:* 6 months with labs * Z85.828 Personal history of other malignant neoplasm of skin * J45.20 Mild intermittent asthma, uncomplicated* New Medication:* Symbicort 160-4.5 mcg/Act - 2 puff twice a day * M79.7 Fibromyalgia * K21.9 Gastro-esophageal reflux disease without esophagitis Functional Status Functional Condition Comment Date Status Glasses otc readers Active Independent with all ADL's Activ e Independent with all IADL's Acti ve Mental Status Mental Condition Comment Date Status None Active Can Understand Information Activ e Referrals Description No Information Available
--- OUTSIDE RECORDS SUMMARY | 2020-03-17 12:37 | CCD ---
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 Role Phone Ana Carpenter Unavailable PROBLEMS Type Condition ICD9-CM Code [id number] Code Onset Dates Condition S tatus SNOMED Code Notes Problem Post laminectomy syndrome M96.1 Active 750183 01 ALLERGIES Allergen (clinical drug ingredient) Drug/Non Drug Allergy do cumented on EMR Reaction Allergy Type Onset Date Status seasonal sneezing Non Drug Allergy Active steroids Unknown Non Drug Allergy Active ENCOUNTERS from 1960 to 2020-03-08 Encounter Location Date Provider Diagnosis [facility] [address] [place] [id number] Feb, Ana Carpenter Post laminectomy syndrome M96.1 ; Chroni c prescription opiate use Z79.891 and Myalgia, other site M79.18 IMMUNIZATIONS No Information SOCIAL HISTORY Tobacco Use: Social History Observation Description Date Details (start date - stop date) Never Smoker Sex Assigned At : Social History Observation Description Sex Assigned At Unknown Language: Question Answer Notes Languages spoken: Chadian Alcohol Screening: Question Answer Notes Did you have a drink containing alcohol in the past year? No Points 0 Interpretation Negative Tobacco Use: Question Answer Notes Are you a: never smoker REASON FOR REFERRAL No Information VITAL SIGNS Weight 269 lbs Feb, Height 69.34 in Feb, BMI 39.33 kg/m2 Feb, Heart Rate 83 /min Feb, Respiratory Rate 18 /min Feb, Temperature 97.5 degrees Fahrenheit Feb, Oximetry 98% Feb, Blood pressure systolic 128 mm Hg Feb, Blood pressure diastolic 80 mm Hg Feb, MEDICATIONS Medication SIG (Take, Route, Frequency, Duration) Notes Start Da te End Date Status Zyrtec Allergy 10 MG 1 tablet Orally Once a day for 30 day(s) Active Naproxen 500 MG 1 tablet with food or milk as needed Orally 1 as need ed Active Lasix 20 MG 1 tablet Orally Once a day for 30 day(s) Not-Taking Ventolin HFA 108 (90 Base) MCG/ACT 1 puff as needed Inhalation 3 times a day Active Diltiazem HCl ER Beads 180 MG 1 capsule Orally Once a day for 30 day( s) Active Symbicort 160-4.5 MCG/ACT 2 puffs Inhalation Twice a day Active Metformin & Diet Manage Prod 100mg orally 2 @ am, 1 @ PM Not-Taking Hyoscyamine Sulfate 0.125 MG 1 tablet on the tongue an d allow to dissolve as needed Orally every 4 hrs Active Flecainide Acetate 100 MG as directed Orally bid Active Ciclopirox 8 % 1 application Externally Once a day Active Hydrocodone-Acetaminophen 10-325 MG 1 tablet as needed Orally every 6 hrs when necessary for pain MDD 4 for 30 Days Feb, Active Baclofen 10 MG 1 tablet with food or milk Orally Three times a day for 30 Days Active Omeprazole 20 MG 1 capsule 30 minutes before morning meal Orally Once a day for 30 day(s) Active TraZODone HCl 100 MG 1 tablet at bedtime Orally Once a day for 30 day (s) Active Levothyroxine Sodium 150 MCG 1 tablet in the morning o n an empty stomach Orally Once a day for 30 day(s) Active Sumatriptan Succinate 100 MG 1 tablet at least 2 hours between doses as needed Orally once a day Active PROCEDURES No Information RESULTS No Results REASON FOR VISIT medication management/urine tox MEDICAL (GENERAL) HISTORY Type Description Date Medical [...] STATUS No Information ASSESSMENTS Encounter Date Diagnosis Assessment Notes Treatment Notes Treatm ent Clinical Notes Feb, Post laminectomy syndrome (ICD-10 - M96.1) ISTOP registry reviewed and demonstrates complliance. Brings in medications which is appropriate for what was dispensed. Urine Toxicology Today , Risks of narcotic/opiod medications includes but is not limited to risk of dependance/development of addiction, mood disturbance and depression, osteoporosis, hormonal and labidal changes, respiratory depression and . Patient is advised NOT to DRIVE or drink ALCOHOL while on these medications Feb, Chronic prescription opiate use (ICD-10 - Z79.89 1) Feb, Myalgia, other site (ICD-10 - M79.18) PLAN OF TREATMENT Medication Medication Name Sig Start Date Stop Date Hydrocodone-Acetaminophen 10-325 MG 1 tablet as needed Orally every 6 hrs when necessary for pain MDD 4 for 30 Days Feb, Treatment Notes Assessment Notes Clinical Notes Post laminectomy syndrome ISTOP registry reviewed and demonstrates complliance. Brings in medications which is appropriate for what was dispensed.Urine Toxicology Today, Risks of narcotic/opiod medications includes but is not li mited to risk of dependance/development of addiction, mood disturbance and depression, osteoporosis, hormonal and labidal changes, respiratory depression and . Patient is advised NOT to DRIVE or drink ALCOHOL while on these medications Next Appt Details 3 Months Reason:medication management/re view urine toxicology Provider Name:Ana Carpenter, 2020-06-06 11 :00:00 AM, [address] [place], [address], Follow Up:3 Monthsmedication management/review urine toxicology Insurance Providers Payer Name Payer Address Payer Phone Insured Name Patient Relati onship to Insured Coverage Start Date Coverage End Date [facility] [address] [address] [facility] [id number] [employer] MEDICARE Part A and B [address] [facility] [phone] [employer]
--- OUTSIDE RECORDS SUMMARY | 2020-03-17 12:37 | CCD | Continuity of Care Document ---
Author Author Dorothea LÓPEZ DPM Organization Unknown Address [address] [facility], [address] [place] [address] Phone [phone] Care Team Providers Care Food Service Lead Name Role Phone Jerilyn Block AUTM [phone] Problems Description No Information Available Social History [...] Provider Dx Diagnosis Office Visit 02/29/2020 3:30p [facility] Álvaro López DPM M20.40 Other hammer toe(s) [...] 3:15 pm - Álvaro López DPM at [facility] Functional Status Description No Information Available Mental Status Description No Information Available Referrals Description No Information Available
--- OUTSIDE RECORDS SUMMARY | 2020-03-17 12:38 | CCD ---
Author Author [facility] Organization [facility] Address Unknown Phone Unavailable Care Team Providers [facility] Front Desk Clerk Name Role Phone Mireille Forrest MD Unavailable Unavailable Lon, Mireille Sanchez MD Unavailable Unavailable Lon, Mireille Sanchez MD Unavailable Unavailable Lon, Mireille Sanchez MD Unavailable Unavailable Lon, Mireille Sanchez MD Unavailable Unavailable Lon, Mireille Sanchez MD Unavailable Unavailable Lon, Mireille Sanchez MD Unavailable Unavailable Lon, Mireille Sanchez MD Unavailable Unavailable Lon, Mireille Sanchez MD Unavailable Unavailable Lon, Mireille Sanchez MD Unavailable Unavailable Lon, Mireille Sanchez MD Unavailable Unavailable Lon, Mireille Sanchez MD Unavailable Unavailable Lon, Mireille Sanchez MD Unavailable Unavailable Lon, Mireille Sanchez MD Unavailable Unavailable Lon, Mireille Sanchez MD Unavailable Unavailable Lon, Mireille Sanchez MD Unavailable Unavailable Lon, Mireille Sanchez MD Unavailable Unavailable Lon, Mireille Sanchez MD Unavailable Unavailable Lon, Mireille Sanchez MD Unavailable Unavailable Lon, Mireille Sanchez MD Unavailable Unavailable Lon, Mireille Sanchez MD Unavailable Unavailable Lon, Mireille Sanchez MD Unavailable Unavailable Lon, Mireille Sanchez MD Unavailable Unavailable Lon, Mireille Sanchez MD Unavailable Unavailable Lon, Mireille Sanchez MD Unavailable Unavailable Lon, Mireille Sanchez MD Unavailable Unavailable Lon, Mireille Sanchez MD Unavailable Unavailable Lon, Mireille Sanchez MD Unavailable Unavailable Lon, Mireille Sanchez MD Unavailable Unavailable Lon, Mireille Sanchez MD Unavailable Unavailable Lon, Mireille Sanchez MD Unavailable Unavailable Lon, Mireille Sanchez MD Unavailable Unavailable Lon, Mireille Sanchez MD Unavailable Unavailable Lon, Mireille Sanchez MD Unavailable Unavailable Lon, Mireille Sanchez MD Unavailable Unavailable Lon, Mireille Sanchez MD Unavailable Unavailable Lon, Mireille Sanchez MD Unavailable Unavailable Lon, Mireille Sanchez MD Unavailable Unavailable Lon, Mireille Sanchez MD Unavailable Unavailable Lon, Mireille Sanchez MD Unavailable Unavailable Lon, Mireille Sanchez MD Unavailable Unavailable Lon, A Laura RAND Unavailable Unavailable Lon, A Laura RAND Unavailable Unavailable Lon, A Laura RAND Unavailable Unavailable Lon, A Laura RAND Unavailable Unavailable Lon, A Laura RAND Unavailable Unavailable Lon, A Laura RAND Unavailable Unavailable Lon, A Laura RAND Unavailable Unavailable Lon, A Laura RAND Unavailable Unavailable Lon, A Laura RAND Unavailable Unavailable Lon, A Laura RAND Unavailable Unavailable Lon, A Laura RAND Unavailable Unavailable Lon, A Laura RAND Unavailable Unavailable Lon, A Laura RAND Unavailable Unavailable Lon, A Laura RAND Unavailable Unavailable Lon, A Laura RAND Unavailable Unavailable Lon, A Laura RAND Unavailable Unavailable Lon, A Laura RAND Unavailable Unavailable Lon, A Laura RAND Unavailable Unavailable Lon, A Laura RAND Unavailable Unavailable Lon, A Laura RAND Unavailable Unavailable Lon, A Laura RAND Unavailable Unavailable Lon, A Laura RAND Unavailable Unavailable Lon, A Laura RAND Unavailable Unavailable Lon, A Laura RAND Unavailable Unavailable Lon, A Laura RAND Unavailable Unavailable Lon, A Laura RAND Unavailable Unavailable Lon, A Laura RAND Unavailable Unavailable Lon, A Laura RAND Unavailable Unavailable Lon, A Laura RAND Unavailable Unavailable Lon, A Laura RAND Unavailable Unavailable Lon, A Laura RAND Unavailable Unavailable Lon, A Laura RAND Unavailable Unavailable Lon, A Laura RAND Unavailable Unavailable Lon, A Laura RAND Unavailable Unavailable MAJAK, R MIKE DPM Unavailable Unavailable MAJAK, R MIKE DPM Unavailable Unavailable MAJAK, R MIKE DPM Unavailable Unavailable MAJAK, R MIKE DPM Unavailable Unavailable MAJAK, R MIKE DPM Unavailable Unavailable MAJAK, R MIKE DPM Unavailable Unavailable MAJAK, R MIKE DPM Unavailable Unavailable MAJAK, R MIKE DPM Unavailable Unavailable MAJAK, R MIKE DPM Unavailable Unavailable MAJAK, R MIKE DPM Unavailable Unavailable MAJAK, R MIKE DPM Unavailable Unavailable MAJAK, R MIKE DPM Unavailable Unavailable MAJAK, R MIKE DPM Unavailable Unavailable MAJAK, R MIKE DPM Unavailable Unavailable MAJAK, R MIKE DPM Unavailable Unavailable MAJAK, R MIKE DPM Unavailable Unavailable MAJAK, R MIKE DPM Unavailable Unavailable MAJAK, R MIKE DPM Unavailable Unavailable MAJAK, R MIEK DPM Unavailable Unavailable MAJAK, R MIKE DPM Unavailable Unavailable MAJAK, R MIKE DPM Unavailable Unavailable MAJAK, R MIKE DPM Unavailable Unavailable MAJAK, R MIKE DPM Unavailable Unavailable MAJAK, R MIKE DPM Unavailable Unavailable MAJAK, R MIKE DPM Unavailable Unavailable MAJAK, R MIKE DPM Unavailable Unavailable MAJAK, R MIKE DPM Unavailable Unavailable MAJAK, R MIKE DPM Unavailable Unavailable MAJAK, R MIKE DPM Unavailable Unavailable MAJAK, R MIKE DPM Unavailable Unavailable Pleskach, Rossana POST OFFICE CLERK Unavailable Unavailable Pleskach, Rossana POST OFFICE CLERK Unavailable Unavailable Pleskach, Rossana POST OFFICE CLERK Unavailable Unavailable Pleskach, Rossana POST OFFICE CLERK Unavailable Unavailable Pleskach, Rossana POST OFFICE CLERK Unavailable Unavailable Pleskach, Rossana POST OFFICE CLERK Unavailable Unavailable Pleskach, Rossana POST OFFICE CLERK Unavailable Unavailable Pleskach, Rossana POST OFFICE CLERK Unavailable Unavailable Pleskach, Rossana POST OFFICE CLERK Unavailable Unavailable Pleskach, Rossana POST OFFICE CLERK Unavailable Unavailable Pleskach, Rossana POST OFFICE CLERK Unavailable Unavailable Pleskach, Rossana POST OFFICE CLERK Unavailable Unavailable Pleskach, Rossana POST OFFICE CLERK Unavailable Unavailable Pleskach, Rossana POST OFFICE CLERK Unavailable Unavailable Pleskach, Rossana POST OFFICE CLERK Unavailable Unavailable Pleskach, Rossana POST OFFICE CLERK Unavailable Unavailable Pleskach, Rossana POST OFFICE CLERK Unavailable Unavailable Pleskach, Rossana POST OFFICE CLERK Unavailable Unavailable Pleskach, Rossana POST OFFICE CLERK Unavailable Unavailable Pleskach, Rossana POST OFFICE CLERK Unavailable Unavailable Pleskach, Rossana POST OFFICE CLERK Unavailable Unavailable Pleskach, Rossana POST OFFICE CLERK Unavailable Unavailable Pleskach, Rossana POST OFFICE CLERK Unavailable Unavailable Pleskach, Rossana POST OFFICE CLERK Unavailable Unavailable Pleskach, Rossana POST OFFICE CLERK Unavailable Unavailable Pleskach, Rossana POST OFFICE CLERK Unavailable Unavailable Pleskach, Rossana POST OFFICE CLERK Unavailable Unavailable Pleskach, Rossana POST OFFICE CLERK Unavailable Unavailable Yesika DUBON MD Unavailable Unavailable Yesika DUBON MD Unavailable Unavailable Yesika DUBON MD Unavailable Unavailable Yesika DUBON MD Unavailable Unavailable Yesika DUBON MD Unavailable Unavailable Yesika DUBON MD Unavailable Unavailable Yesika DUBON MD Unavailable Unavailable Yesika DUBON MD Unavailable Unavailable Yesika DUBON MD Unavailable Unavailable Yesika DUBON MD Unavailable Unavailable Yesika DUBON MD Unavailable Unavailable Yesika DUBON MD Unavailable Unavailable Yesika DUBON MD Unavailable Unavailable Yesika DUBON MD Unavailable Unavailable Yesika DUBON MD Unavailable Unavailable Yesika DUBON MD Unavailable Unavailable Yesika DUBON MD Unavailable Unavailable Yesika DUBON MD Unavailable Unavailable Yesika DUBON MD Unavailable Unavailable Yesika DUBON MD Unavailable Unavailable RITESH, F SEKOU MD Unavailable Unavailable RITESH, F SEKOU MD Unavailable Unavailable RITESH, F SEKOU MD Unavailable Unavailable RITESH, F SEKOU MD Unavailable Unavailable RITESH, F SEKOU MD Unavailable Unavailable RITESH, F SEKOU MD Unavailable Unavailable RITESH, F SEKOU MD Unavailable Unavailable RITESH, F SEKOU MD Unavailable Unavailable RITESH, F SEKOU MD Unavailable Unavailable RITESH, F SEKOU MD Unavailable Unavailable RITESH, F SEKOU MD Unavailable Unavailable RITESH, F SEKOU MD Unavailable Unavailable RITESH, F SEKOU MD Unavailable Unavailable RITESH, F SEKOU MD Unavailable Unavailable RITESH, F SEKOU MD Unavailable Unavailable RITESH, F SEKOU MD Unavailable Unavailable RITESH, F SEKOU MD Unavailable Unavailable RITESH, F SEKOU MD Unavailable Unavailable RITESH, F SEKOU MD Unavailable Unavailable RITESH, F SEKOU MD Unavailable Unavailable RITESH, F SEKOU MD Unavailable Unavailable RITESH, F SEKOU MD Unavailable Unavailable RITESH, F SEKOU MD Unavailable Unavailable RITESH, F SEKOU MD Unavailable Unavailable RITESH, F SEKOU MD Unavailable Unavailable RITESH, F SEKOU MD Unavailable Unavailable RITESH, F SEKOU MD Unavailable Unavailable RITESH, F SEKOU MD Unavailable Unavailable RITESH, F SEKOU MD Unavailable Unavailable RITESH, F SEKOU MD Unavailable Unavailable RITESH, F SEKOU MD Unavailable Unavailable RITESH, F SEKOU MD Unavailable Unavailable RITESH, F SEKOU MD Unavailable Unavailable RITESH, F SEKOU MD Unavailable Unavailable RITESH, F SEKOU MD Unavailable Unavailable RITESH, F SEKOU MD Unavailable Unavailable RITESH, F SEKOU MD Unavailable Unavailable RITESH, F SEKOU MD Unavailable Unavailable RITESH, F SEKOU MD Unavailable Unavailable RITESH, F SEKOU MD Unavailable Unavailable RITESH, F SEKOU MD Unavailable Unavailable RITESH, F SEKOU MD Unavailable Unavailable RITESH, F SEKOU MD Unavailable Unavailable RITESH, F SEKOU MD Unavailable Unavailable RITESH, F SEKOU MD Unavailable Unavailable RITESH, F SEKOU MD Unavailable Unavailable RITESH, F SEKOU MD Unavailable Unavailable RITESH, F SEKOU MD Unavailable Unavailable RITESH, F SEKOU MD Unavailable Unavailable RITESH, F SEKOU MD Unavailable Unavailable RITESH, F SEKOU MD Unavailable Unavailable RITESH, F SEKOU MD Unavailable Unavailable RITESH, F SEKOU MD Unavailable Unavailable RITESH, F SEKOU MD Unavailable Unavailable RITESH, F SEKOU MD Unavailable Unavailable RITESH, F SEKOU MD Unavailable Unavailable RITESH, F SEKOU MD Unavailable Unavailable RITESH, F SEKOU MD Unavailable Unavailable RITESH, F SEKOU MD Unavailable Unavailable RITESH, F SEKOU MD Unavailable Unavailable RITESH, F SEKOU MD Unavailable Unavailable RITESH, F SEKOU MD Unavailable Unavailable RITESH, F SEKOU MD Unavailable Unavailable RITESH, F SEKOU MD Unavailable Unavailable RITESH, F SEKOU MD Unavailable Unavailable Re-disclosure Warning The records that you are about to access may contain information from federally-assisted alcohol or drug abuse programs. If such information is present, then the following federally mandated warning applies: This information has been disclosed to you from records protected by federal confidentiality rules (42 CFR part 2). The federal rules prohibit you from making any further disclosure of this information unless further disclosure is expressly permitted by the written consent of the person to whom it pertains or as otherwise permitted by 42 CFR part 2. A general authorization for the release of medical or other information is NOT sufficient for this purpose. The Federal rules restrict any use of the information to criminally investigate or prosecute any alcohol or drug abuse patient.The records that you are about to access may contain highly sensitive health information, the redisclosure of which is protected by Article 27-F of the [facility] Public Health law. If you continue you may have access to information: Regarding HIV / AIDS; Provided by facilities licensed or operated by the [facility] Office of Mental Health; or Provided by the [facility] Office for People With Developmental Disabilities. If such information is present, then the following [facility] mandated warning applies: This information has been disclosed to you from confidential records which are protected by state law. State law prohibits you from making any further disclosure of this information without the specific written consent of the person to whom it pertains, or as otherwise permitted by law. Any unauthorized further disclosure in violation of state law may result in a fine or shelter sentence or both. A general authorization for the release of medical or other information is NOT sufficient authorization for further disc losure. Encounters Encounter Providers Location Date Indications Data Source(s ) Out[place] [address] [facility] [address] 03/07/2020 12:00:00 AM EST eCW1 ([facility]) Outpatient Attender: SEKOU DUBON MDReferrer: Laura Forrest MD 03/02/2020 12:06:44 PM EST [facility] Outpatient Attender: MIKE MARTIN [facility] [place][note 2] 05/2020 02:30:00 PM EST [facility] ([facility] Recurring Patient Referrer: Laura Forrest MD 02/24/2020 0 9:01:32 AM EST [facility] Recurring Patient Referrer: Laura Forrest MD 02/23/2020 0 2:34:34 PM EST [facility] Recurring Patient Referrer: Laura Forrest MD 02/23/2020 0 7:23:48 AM EST [facility] Recurring Patient Referrer: Laura Forrest MD 02/16/2020 0 1:11:24 PM EST [facility] Outpatient Attender: Rossana Block [facility] Main Office 01/18/2020 0 9:00:00 AM EST [facility] ([facility] Outpatient [address] [facility] [id number] 01/06/2020 12:00:00 AM EST eCW1 ([facility]) Unknown [address] [facility] [id number] 01/05/2020 12:00:00 AM EST eCW1 ([facility]) Medications Medication Brand Name Start Date Product Form Dose Route Admi nistrative Instructions Pharmacy Instructions Status Indications Reaction Description Data Source(s) Acetaminophen 325 MG / Hydrocodone Jose Rafael trate 10 MG Oral Tablet Hydrocodone- Acetaminophen 10-325 MG Hydrocodone-Acetaminophen 10-325 MG 03/07/2020 12:00:0 0 AM EST 1.0 {tablet_as_needed} active Hydrocodone-Acetaminophen 10- 325 MG eCW1 ([facility]) 60 ACTUAT Budesonide 0.16 MG/ACTUAT / fo rmoterol fumarate 0.0045 MG/ACTUAT Metered Dose Inhaler [Symbicort] Symbicort 01/18/2020 12:00:00 AM EST RESPIRATORY active [facility] ( [facility] Acetaminophen 325 MG / Hydrocodone Jose Rafael trate 10 MG Oral Tablet Hydrocodone- Acetaminophen 10-325 MG Hydrocodone-Acetaminophen 10-325 MG 01/06/2020 12:00:0 0 AM EST 1.0 {tablet_as_needed} active Hydrocodone-Acetaminophen 10- 325 MG eCW1 ([facility]) Acetaminophen 325 MG / Hydrocodone Jose Rafael trate 10 MG Oral Tablet Hydrocodone- Acetaminophen 10-325 MG Hydrocodone-Acetaminophen 10-325 MG 01/06/2020 12:00:0 0 AM EST 1.0 {tablet_as_needed} active Hydrocodone-Acetaminophen 10- 325 MG eCW1 ([facility]) Insurance Providers Payer name Policy type / Coverage type Policy ID Covered libertarian ID Covered libertarian's relationship to hdez Policy Hdez Plan Information [employer] [id number] SP [id number] WELL[employer] [id number] SP [id number] MEDICARE SP [facility] [id number] SP [id number] [facility] O [id number] S [id number] [employer] [facility] Plans F [id number] SELF [id number] SELF PAY Problems, Conditions, and Diagnoses Code Display Name Description Problem Type Effective Dates Data Source(s) 77956551168375151 History of amputation of right lesser to e History of amputation of right lesser toe Problem 03/03/2020 12:00:00 AM EST [facility] ([facility] [id number] Type 2 diabetes mellitus Type 2 diabetes mellitus Prob letitia 03/03/2020 12:00:00 AM EST [facility] ([facility] [id number] Hammer toe Hammer toe Problem 03/03/2020 12:00:00 AM ES T [facility] [id number] Fibromyalgia Fibromyalgia Problem 01/20/2020 12:00:00 A M EST [facility] ([facility] [id number] Paroxysmal supraventricular tachycardia Paroxysmal supraventricular tachycardia Problem 01/20/2020 12:00:00 AM EST [facility] ([facility] [id number] Mild intermittent asthma Mild intermittent asthma Prob letitia 01/20/2020 12:00:00 AM EST [facility] ([facility] [id number] Hypothyroidism Hypothyroidism Problem 01/20/2020 12:00: 00 AM EST [facility] ([facility] [id number] Type 2 diabetes mellitus Type 2 diabetes mellitus Prob letitia 01/20/2020 12:00:00 AM EST [facility] ([facility] M96.1 [id number] Post laminectomy syndrome Problem 01/06/2020 12:00:00 AM EST eCW1 ([facility]) Surgeries/Procedures Procedure Description Date Indications Data Source(s) Diabetic Foot Exam 08/26/2019 12:00:00 AM EDT [facility] ([facility] Results ID Date Data Source [id number] 03/12/2020 10:00:00 AM EST [facility] Name Value Range Interpretation Code Description Data Meera rce(s) Supporting Document(s) SARS coronavirus 2 RNA Not Detected [facility] [place] This lab was ordered by [facility] and reported by [facility]. ID Date Data Source [id number] 03/10/2020 12:00:00 AM EST [facility] Ramya Willingham Patient Name: DOROTHEA [id number] Date of : 1960[place] [address] Date of Exam: 03/10/2020#: Fax: [phone] EXAM: MAMMO UNI DIAGNOSTIC INCLUD CAD AND ULTRASOUND BREAST UNI LIMITEDCLINICAL INFORMATION: Diagnostic right breast.Followup exam from prior screening examination 02/02/2020 which showed afaintly visible potential chaparro-density in the upper/inner aspect rightbreast for which diagnostic digital magnified spot compression views wereobtained in the CC and MLO projections along with ultrasonography.Diagnostic digital magnified spot compression views shows the area ofinterest to compress out to normal appearing breast parenchyma andconsistent with a slight bend in a normal appearing vessel.Diagnostic ultrasonography over the region of interest shows no cystic orsolid masses.IMPRESSION:BI-RADS Category 2 - Benign right mammogram. There is no evidence ofmalignant alteration. Routine bilateral screening mammography recommendedat its regularly scheduled annual interval.GUILLERMINA Esparza/Keith you for referring DOROTHEA MOORE to our office. Electronically Signed - ISAEL GRAMAJO DO 03/11/20 16:01 Name Value Range Interpretation Code Description Data Meera rce(s) Supporting Document(s) ID Date Data Source [id number] 03/10/2020 12:00:00 AM EST [facility] Ramya Willingham Patient Name: DOROTHEA [id number] [facility] 1960[facility] [address] Date of Exam: 03/10/2020#: Fax: [phone] EXAM: MAMMO UNI DIAGNOSTIC INCLUD CAD AND ULTRASOUND BREAST UNI LIMITEDCLINICAL INFORMATION: Diagnostic right breast.Followup exam from prior screening examination 02/02/2020 which showed afaintly visible potential chaparro-density in the upper/inner aspect rightbreast for which diagnostic digital magnified spot compression views wereobtained in the CC and MLO projections along with ultrasonography.Diagnostic digital magnified spot compression views shows the area ofinterest to compress out to normal appearing breast parenchyma andconsistent with a slight bend in a normal appearing vessel.Diagnostic ultrasonography over the region of interest shows no cystic orsolid masses.IMPRESSION:BI-RADS Category 2 - Benign right mammogram. There is no evidence ofmalignant alteration. Routine bilateral screening mammography recommendedat its regularly scheduled annual interval.GUILLERMINA Esparza/Keith you for referring DOROTHEA MOORE to our office. Electronically Signed - ISAEL GRAMAJO DO 03/11/20 16:01 Name Value Range Interpretation Code Description Data [facility] Supporting Document(s) ID Date Data Source [id number] 03/02/2020 12:06:44 PM EST [facility] PCName: Dorothea MooreDOB: 1Provider: Taylor Dubon: 02/24/2020 Reason For VisitDorothea Moore is here today for right shoulder. Dorothea Moore is a new patient. Patient reports pushing off of a walker about 2.5 years ago and felt severe pain to right shoulder. She states pain level is 7/10 managed with motrin and hydrocodone which is used for chronic pain. She is also using arnica cream and icy hot. Pain is posterior. She has not had any recent PT and is not using a gait aide. Other DOI/DOO: chronic. The patient has not had a course of physical therapy for greater than 4 weeks. Physical therapy and/or home exercise program has not been effective. The patient has not had a course of NSAIDs for greater than 4 weeks. Patient states they are disabled. Plan X-Ray I Shoulder - 2 views (XRays were ordered, obtained and interpreted today in theoffice. Indication: pain/dysfunction.); Status:Complete; Done: [id number] Perform:SOS29; Due:[id number]; Last Updated By:Bailey Kraus; 02/24/2020 9:35:41 AM;Ordered; For:Right shoulder pain; Ordered By:Sekou Dubon;sfLaterality: : Right HPI:This 59-year-old new patient is here for the right shoulder sent by her primary care doctor, Dr. Laura Forrest.The patient is from [place]. She has had two and one-half years of right shoulder pain when pushing up off of her walker and she felt severe pain in the shoulder. The pain is 8 out 10 in the back of her shoulder. She uses Arnica cream and IcyHot. She has noted limited range of motion and some stiffness. She is using Motrin and hydrocodone for fibromyalgia. She has had not had any therapy recently. She is not using a sling. She is disabled and not working at this time. PHYSICAL EXAMINATION:The patient appears well-developed, well-nourished and in no significant acute distress. The patients body habitus computes to obese. Patient is oriented to person, place and time. The patients mood is appropriate to situation. The patients coordination is normal. The patient uses no assistive device. Exam of the right shoulder reveal no abnormalities of the skin are found. No evidence of RSD. No evidence of infection. No evidence of thrombosis. The radial pulse is present and normal. Capillary refill is satisfactory. There is no swelling noted. Abnormal motor strength (deficits) include: rotator cuff ER, and is moderate, rotator cuff abduction, and is moderate. Sensation is normal to touch throughout the extremity. Tenderness to palpation is found at the lesser tuberosity and greater tuberosity. The shoulder subacromial space is crepitant. There is no effusion at the SC joint, AC joint or the shoulder joint. No deformity is seen. Impingement sign positive for Neer Impingement. Impingement sign positive for Jamison Impingement. ROM shows moderate global loss. No instability was noted.She does have reasonable rotator cuff strength, but it certainly hurts her. IMAGING:X-rays: Three views of the right shoulder ordered and taken in the office today for pain and interpreted by me reveal normal findings. There is a little bit of early glenohumeral osteoarthritis but nothing too terribly impressive. The AC joint looks okay. The humerus is well positioned against the glenoid. She had an MRI of her right shoulder in June of 2018. I do not have the images, but I have the report. The report suggests a partial-thickness tear on the deep side of the supraspinatus tendon with some retraction and tendinosis of the cuff in general and a SLAP lesion. ASSESSMENT:1.Shoulder pain, right. IMPRESSION AND PLAN:In looking at her MRI and her exam, she is certainly a candidate for arthroscopy and that may be what is coming in the future for her. However, I think during a pandemic, there is a role for nonoperative management, especially since this is subacute, and we talk ed about the option of injection today and then see one of our shoulder surgeons in about three months for consideration of arthroscopy later on in 2020 like the summertime. She voiced agreement and approval of that plan. She thinks that works out better for her as her daughter will be able to help her more in the summer but cannot right now. Subsequently, I injected her shoulder joint today from the front and we will see if that gives her any relief. I asked her to call me with questions or concerns. An argument could be made for subacromial injection, but she does not really have a lot of impingement-type symptomatology today. It seems to be more intraarticular pain and I am hoping intraarticular injection helps her more. After review of risks and benefits and agreeing to the procedure and after obtaining the patients consent and under sterile conditions, a mixture of 80 mg of Depo-Medrol and 0.5% Marcaine were injected into the right shoulder joint from the anterior aspect. She tolerated it well. We will set her up to see one of our shoulder surgeons in about 90 days. Signatures Electronically signed by : Melonie Hurtado, ; Mar 01 2020 1:45PM EST Electronically signed by : Sekou Dubon M.D.; Mar 02 2020 12:06PM EST (Author) Name Value Range Interpretation Code Description Data Meera rce(s) Supporting Document(s) ID Date Data Source [id number] 02/02/2020 12:00:00 AM EST [facility] Ramya Willingham Patient Name: HERBRE [id number] Date of : 1960[place] [address] Date of Exam: 02/02/2020#: Fax: [phone] EXAM: MAMMO SCREENING WITH CADCLINICAL INFORMATION: Screening.Based on the personal and family history information your patient suppliedat the time of imaging, her lifetime risk of breast cancer estimated by theTyrer-Cuzick model is 9.8%. Given that this patient has less than 20% TCrisk score, no further medical management is currently recommended at thistime.Original exam date 02/02/2020. We have been waiting for the prior reportsand prior exams for comparison to our exam. The prior exams have justarrived, there are no reports accompanying those exams. So as to not delaypatient care, this examination will be interpreted at this time and anaddendum report will be made if necessary at the time the prior reportsarrive.Digital screening (2D) mammography was performed bilaterally in the CC andMLO projections. Additionally, breast tomosynthesis (3D mammography) wasperformed bilaterally in the CC and MLO projections. Today's exam wascompared to the prior exam(s). There are no prior DBT images forcomparison. The prior exam was submitted without additional DBT images.By history, the patient has no complaints of a palpable breast abnormalityor other significant breast complaints.The patient states last clinical breast exam was over a year ago.The breasts are unchanged in size and shape.Seen in the upper/inner quadrant of the right breast, there is a faintlyvisible potential chaparro-nodular density. This is seen on both FFDM and DBTimages although much better imaged on the DBT images. Since no prior DBTimages were made available for review, I cannot say with certainty whetheror not this faintly visible nodule was present on the prior exams.Benign calcifications are again seen bilaterally. No other suspiciousfeatures are seen in either breast.IMPRESSION:BI-RADS Category 0 - Incomplete: Needs additional imaging evaluation.Potential chaparro-density seen in the right breast as described above for whichdiagnostic digital magnified spot compression views are recommended in theCC and MLO projections along with diagnostic ultrasonography if necessary.Our office will attempt to contact the patient for additional imaging.This mammogram was read with the assistance of [employer], an FDAapproved computer aided detection system for mammography.Negative x-ray reports should not delay surgical consultation if a dominantor clinically suspicious mass is present.Not all breast cancers can be identified by mammography. Therefore, werecommend that you continue to perform regular breast self-examination andphysical examination and then promptly contact your physician of anyconcerns or changes.Adenosis and dense breasts may obscure an underlying neoplasm.GUILLERMINA Esparza/Keith you for referring DOROTHEA MOORE to our office. Electronically Signed - ISAEL GRAMAJO DO 02/22/20 16:43 Name Value Range Interpretation Code Description Data Meera rce(s) Supporting Document(s) Procedure Social History Code Duration Value Status Description Data Source(s ) Smoking 03/07/2020 12:00:00 AM EST Never Smoker completed Never S moker eCW1 ([facility]) Smoking 01/18/2020 12:00:00 AM EST Patient is a former smoker completed Patient is a former smoker [facility] ([facility] Smoking 01/06/2020 12:00:00 AM EST Never Smoker completed Never S moker eCW1 ([facility]) Smoking 01/06/2020 12:00:00 AM EST Never Smoker completed Never S moker eCW1 ([facility]) Vital Signs ID Date Data Source UNK Name Value Range Interpretation Code Description Data Source(s) Diastolic blood pressure 80 mm[Hg] 80 mm[Hg] eCW1 ([facility]) Systolic blood pressure 128 mm[Hg] 128 mm[Hg] e CW1 ([facility]) Body temperature 97.5 [degF] 97.5 [degF] eCW1 ( [facility]) Respiratory rate 18 /min 18 /min eCW1 ([facility]) Heart rate 83 /min 83 /min eCW1 ([facility]) Body mass index (BMI) [Ratio] 39.33 kg/m2 39.33 kg/m2 eCW1 ([facility]) Body height 69.34 [in_i] 69.34 [in_i] eCW1 ([facility]) Body weight 269 [lb_av] 269 [lb_av] eCW1 ([facility]) Body mass index (BMI) [Ratio] 39.7 kg/m2 39.7 k g/m2 [facility] ([facility] Heart rate 75 /min 75 /min [facility] ([facility] Diastolic blood pressure 75 mm[Hg] 75 mm[Hg] [facility] ([facility] Systolic blood pressure 119 mm[Hg] 119 mm[Hg] M EDENT ([facility] Body weight 275.00 [lb_av] 275.00 [lb_av] MEDEN T ([facility] Body height 69.75 [in_i] 69.75 [in_i] [facility] ([facility] 5'9.75" Body mass index (BMI) [Ratio] 39.8 kg/m2 39.8 k g/m2 [facility] ([facility] Elizabeth body weight 145 [lb_av] 145 [lb_av] MED[facility] T ([facility] Oxygen saturation in Arterial blood by Pulse oximetry 99 % 99 % [facility] ([facility] Body weight 275.12 [lb_av] 275.12 [lb_av] MEDEN T ([facility] Body height 69.75 [in_i] 69.75 [in_i] [facility] ([facility] 5'9.75" Respiratory rate 17 /min 17 /min [facility] ( [facility] Body temperature 97.8 [degF] 97.8 [degF] [facility] ([facility] Heart rate 75 /min 75 /min [facility] ([facility] Diastolic blood pressure 75 mm[Hg] 75 mm[Hg] [facility] ([facility] Systolic blood pressure 119 mm[Hg] 119 mm[Hg] M EDENT ([facility] Diastolic blood pressure 77 mm[Hg] 77 mm[Hg] eCW1 ([facility]) Systolic blood pressure 136 mm[Hg] 136 mm[Hg] e CW1 ([facility]) Body temperature 97.5 [degF] 97.5 [degF] eCW1 ( [facility]) Respiratory rate 16 /min 16 /min eCW1 ([facility]) Heart rate 78 /min 78 /min eCW1 ([facility]) Body mass index (BMI) [Ratio] 39.62 kg/m2 39.62 kg/m2 eCW1 ([facility]) Body height 69.34 [in_i] 69.34 [in_i] eCW1 ([facility]) Body weight 271 [lb_av] 271 [lb_av] eCW1 ([facility]) Patient Treatment Plan of Care Planned Activity Planned Date Details Description Data Source (s) Acetaminophen 325 MG / Hydrocodone Bitartrate 10 MG Or al Tablet 03/07/2020 12:00:00 AM EST eCW1 ([facility]) Acetaminophen 325 MG / Hydrocodone Bitartrate 10 MG Or al Tablet 01/06/2020 12:00:00 AM EST eCW1 ([facility]) Acetaminophen 325 MG / Hydrocodone Bitartrate 10 MG Or al Tablet 01/06/2020 12:00:00 AM EST eCW1 ([facility])
[2020-03-17] MEDS ORDERED: SUMA100T2 PO (13:11)
[2020-03-17] MEDS ORDERED: SYMB16INH INH (13:11)
[2020-03-17] MEDS ORDERED: TRAZ-257 PO (13:11)
[2020-03-17] MEDS ORDERED: NAPR-885 PO (13:11)
[2020-03-17] MEDS ORDERED: OMEP-218 PO (13:11)
[2020-03-17] MEDS ORDERED: DILT180C28 PO (13:11)
[2020-03-17] MEDS ORDERED: BACL10TA8 PO (13:11)
[2020-03-17] MEDS ORDERED: FLEC1TAB PO (13:11)
[2020-03-17] MEDS ORDERED: HYDR-4517 PO (13:11)
[2020-03-17] MEDS ORDERED: METF-839 PO ×2 (13:11)
[2020-03-17] MEDS ORDERED: FURO20TA2 PO (13:11)
[2020-03-17] MEDS ORDERED: CICL0.7739 TOP (13:11)
[2020-03-17] MEDS ORDERED: HYOS125TA SL (13:11)
[2020-03-17] MEDS ORDERED: VANCOMYCIN HCL 1,000 MG, VIAL MATE ADAPTER 1 EACH in D5W 250 ML IV ONE (13:15)
[2020-03-17] MEDS ORDERED: LR 1,000 ML IV ONE (13:30)
[2020-03-17] MEDS ORDERED: LIDOCAINE 1% SDV 30ML VIAL As Ordered ONE (13:37)
[2020-03-17] MEDS ORDERED: fentaNYL 100 MCG/2 ML INJECTION (J3010) As Ordered ONE (13:39)
[2020-03-17] MEDS ORDERED: MIDAZOLAM INJ 2MG/2ML VIAL (J2250 PER 1MG) As Ordered ONE (13:39)
[2020-03-17] MEDS ORDERED: propofoL 200 MG/20 ML VIAL As Ordered ONE (13:41)
[2020-03-17] MEDS ORDERED: LIDOCAINE 2% 100MG/5ML SDV (FOR ANES.) As Ordered ONE (13:41)
[2020-03-17] MEDS ORDERED: ONDANSETRON 4MG/2ML VIAL IV PRN (15:15)
[2020-03-17] MEDS ORDERED: LR 1,000 ML IV SCH (15:15)
[2020-03-17] MEDS ORDERED: oxyCODONE 5MG TAB PO PRN (15:15)
[2020-03-17] MEDS ORDERED: fentaNYL 100 MCG/2 ML INJECTION (J3010) IV PRN (15:15)
--- NOTE | 2020-03-17 15:20 | RO ---
OPERATIVE NOTE DATE OF OPERATION: 03/17/2020 PREOPERATIVE DIAGNOSIS: Supraventricular tachycardia monitoring. POSTOPERATIVE DIAGNOSIS: Supraventricular tachycardia monitoring. FINDINGS: Supraventricular tachycardia monitoring. PROCEDURE PERFORMED: Implantation of a Medtronic subcutaneous cardiac rhythm monitor. SURGEON: Jose Spencer MD. STONECUTTER ASSISTANT: None. ANESTHESIA: Lidocaine 1% local/monitored anesthetic care. SPECIMENS: No specimens. ESTIMATED BLOOD LOSS: Less than 5 mL. REPLACEMENTS: No blood products replaced. DRAINS: No drains. COMPLICATIONS: No complications. DESCRIPTION OF PROCEDURE: The patient was prepped and draped over the left anterior chest and sternum. Lidocaine 1% was used for local anesthetic. An incision was made approximately 1 cm in length with a #15 scalpel blade at approximately the left fourth interspace about 1 inch lateral to the left parasternal border. The guide on the insertion tool was then placed through the incision and advanced into the breast tissue parallel to the ribs in a left lateral forward/caudal direction (approximately 45 degrees). The insertion tool was then rotated 180 degrees, and the cardiac rhythm monitor was advanced into the breast tissue using the plunger supplied with the tool to advance it forward. The plunger and then the insertion tool were removed using the implanted loop recorder in situ. The initial R wave amplitude was 0.56 millivolts. Next, the incision was approximated temporarily using a 4-0 Biosyn suture applied subcuticular. Next, three layers of Dermabond was applied over the incision, and the Biosyn suture was pulled through the incision line and removed entirely. The patient tolerated the procedure well without any immediate complications. The implanted loop recorder implanted was a weartolook LINQ model LNQ11 with serial number [id number].
[2020-03-17 15:30] VITALS: BP 163/86
== END 2020-03-17 15:54 | disposition home or self-care (01) ==
LOC: M SDC 12:33
PROVIDERS: ATTEND Internal Medicine Cardiovascular Disease
DX: I47.1 Supraventricular tachycardia (principal); E11.9 Type 2 diabetes mellitus without complications; J45.909 Unspecified asthma, uncomplicated; M79.7 Fibromyalgia; E03.9 Hypothyroidism, unspecified; K21.9 Gastro-esophageal reflux disease without esophagitis; Z79.84 Long term (current) use of oral hypoglycemic drugs; Z79.899 Other long term (current) drug therapy; Z88.0 Allergy status to penicillin; Z88.1 Allergy status to other antibiotic agents; Z88.8 Allergy status to other drugs, medicaments and biological substances
CPT/HCPCS: 33285; C1764; J2250; J3010; J3370

== ENCOUNTER → 2020-05-06 | Outpatient (CLI) | payer MEDICARE ==
--- NOTE | 2020-05-09 17:39 | SLEEPCENT ---
NOCTURNAL POLYSOMNOGRAPHY DATE: 05/06/2020 ORDERED BY: GARCÍA Cunningham Nocturnal polysomnography was performed for the titration of pressure therapy in this patient with a clinical diagnosis of obstructive sleep apnea syndrome, confirmed by home testing revealing a respiratory event index of 25.8. For testing a ResMed AirFit F20 full face mask of medium size was used, 4 cm of water pressure were applied to the circuit, and the lights were extinguished. 8 hours and 11 minutes of data were reviewed. There were 421 minutes of sleep identified. Sleep latency was short at 8 minutes. REM latency was delayed at 268 minutes. Sleep architecture improved with optimal pressure therapy and there were two REM cycles appreciated. Overall sleep efficiency was 86.7%. The electrocardiogram showed a sinus rhythm with an average heart rate of 54 beats per minute; rate range 40 to 74. EEG showed reasonably normal waveforms for wake and sleep. Respiratory events were best palliated with CPAP at a pressure of +8 and remaining measures of sleep physiology were normal. IMPRESSION: Obstructive sleep apnea syndrome (G47.33). RECOMMENDATION: Nightly use of pressure therapy 8 cm of water.
== END ==
LOC: M SLEEP 20:00
PROVIDERS: ATTEND Physician Assistant
DX: G47.33 Obstructive sleep apnea (adult) (pediatric) (principal)

== ENCOUNTER → 2020-05-27 | Outpatient (CLI) | payer MEDICARE ==
--- NOTE | 2020-05-27 14:24 | REP ---
INDICATION: RT SHOULDER PAIN. COMPARISON: None. TECHNIQUE: Coronal oblique T1, T2 fat sat, sagittal oblique T2 fat sat, axial T2 fat sat, gradient echo. FINDINGS: Rotator cuff: There is a partial full-thickness tear of the distal supraspinatus tendon along with partial undersurface tearing of the tendon. There is subscapularis tendinopathy/tendinitis. Acromioclavicular joint: There are moderate hypertrophic degenerative changes of the acromioclavicular joint. Acromion: Type 2 Biceps Tendon: In bicipital groove, there is moderate surrounding fluid.. Hill Sach's deformity: None. Deltoid muscle: No abnormal signal. Biceps labral complex: Intact. Labrum: There is an area of increased signal on T2 weighted images in the superior labrum possibly indicating a tear. Cartilage: No defects. Bone marrow: No abnormal signal. Joint fluid: There is a small joint effusion. There is a small amount of fluid in the subacromial/subdeltoid bursae. IMPRESSION: Partial full-thickness tear distal supraspinatus tendon as well as partial undersurface tearing of the tendon. There is subscapularis tendinopathy/tendinitis. Moderate hypertrophic degenerative changes acromioclavicular joint with a type 2 acromion. Moderate fluid surrounds the biceps tendon in the bicipital groove, cannot exclude tenosynovitis. Possible superior labral tear. Further evaluation could be made with MR arthrography. Small joint effusion, with mild fluid in the subacromial/subdeltoid bursae. <Electronically signed by Keagan Eng > 05/27/20 4422
== END ==
LOC: M PLARAD 11:22
PROVIDERS: ATTEND Orthopaedic Surgery
DX: M75.101 Unspecified rotator cuff tear or rupture of right shoulder, not specified as traumatic (principal)

== ENCOUNTER → 2020-06-06 | Outpatient (CLI) | payer MEDICARE ==
--- NOTE | 2020-06-08 05:26 | ECWPNPC ---
PATIENT NAME: VALENTINO DAY : 1960 GENDER: FEMALE VISIT DATE: 06/06/2020 DISCHARGE DATE: 06/06/20 1150 VISIT LOCKED DATE TIME: PHYSICIAN: AUDREY ROMERO RESOURCE: AUDREY ROMERO REASON FOR APPOINTMENT 1. MEDICATION MANAGEMENT/REVIEW URINE TOXICOLOGY HISTORY OF PRESENT ILLNESS GENERAL: HERE FOR FOLLOW-UP AND MEDICATION MANAGEMENT FOR CHRONIC NECK AND LOW BACK PAIN. FINDS CURRENT CHRONIC PAIN MEDICATION HELPFUL AT REDUCING PAIN AND KEEPING HER FUNCTIONAL. DENIES ADVERSE SIDE EFFECTS. BRINGS HER MEDICATION IN WHICH IS APPROPRIATE FOR WHAT WAS DISPENSED. RECENT URINE TOXICOLOGY IS REVIEWED AND WITHIN NORMAL LIMITS. -. FALL RISK SCREENING: SCREENING : NO FALLS REPORTED IN THE LAST YEAR. PAIN SCREENING: PATIENT HAS A COMPLAINT OF ACUTE OR CHRONIC PAIN :YES LOCATION OF PAIN:LOW BACK INTENSITY OF PAIN (SCALE OF 1 TO 10):7 WHAT DOES YOUR PAIN FEEL LIKE:ACHING, BURNING DURATION:CONTINOUS, CONSTANT, ALL DAY PAIN IS INCREASED BY:ACTIVITIES, PROLONGED STANDING PAIN IS DECREASED BY:USE OF PAIN MEDICATIONS NURSING NOTE: -. PAIN CENTER INTAKE QUESTIONS: DO YOU HAVE A HISTORY OF MRSA? :NO DO YOU TAKE A BLOOD THINNERS? :NO DO YOU HAVE ANY BLEEDING DISORDERS? :NO ANY NEW NUMBNESS OR WEAKNESS IN YOUR LEGS OR ARMS? :NO ANY PACEMAKER,DEFIBRILLATOR, OR DORSAL COLUMN STIMULATOR? :NO LOOP RECODER DO YOU HAVE ANY RASHES OR OPEN SORES? :NO ARE YOU ALLERGIC TO IV DYE? :NO ARE YOU DIABETIC? :YES ANY NEW PROBLEMS WITH YOUR MEDICATIONS? :NO HAVE YOU RECEIVED A VACCINE IN THE PAST 30 DAYS? :YES 2ND COVID 05/25/2020 DO YOU PLAN TO RECEIVE A VACCINE IN THE NEXT 21 DAYS? :NO DO YOU NEED ANY PRESCRIPTION? :YES HYDROCODONE DO YOU TAKE ANY IMMUNOSUPPRESSIVE MEDICATIONS? :NO IS THERE A CHANCE YOU COULD BE ? :NO ARE YOU BREAST FEEDING? :NO CURRENT MEDICATIONS TAKING TRAZODONE HCL 100 MG TABLET 1 TABLET AT BEDTIME ORALLY ONCE A DAY TAKING DILTIAZEM HCL ER BEADS 180 MG CAPSULE EXTENDED RELEASE 24 HOUR 1 CAPSULE ORALLY ONCE A DAY TAKING FLECAINIDE ACETATE 100 MG TABLET DIRECTED ORALLY BID TAKING OMEPRAZOLE 20 MG CAPSULE DELAYED RELEASE 1 CAPSULE 30 MINUTES BEFORE MORNING MEAL ORALLY ONCE A DAY TAKING LEVOTHYROXINE SODIUM 150 MCG TABLET 1 TABLET IN THE MORNING ON AN EMPTY STOMACH ORALLY ONCE A DAY TAKING ZYRTEC ALLERGY 10 MG TABLET 1 TABLET ORALLY ONCE A DAY TAKING SUMATRIPTAN SUCCINATE 100 MG TABLET 1 TABLET AT LEAST 2 HOURS BETWEEN DOSES NEEDED ORALLY ONCE A DAY TAKING NAPROXEN 500 MG TABLET 1 TABLET WITH FOOD OR MILK NEEDED ORALLY 1 NEEDED TAKING VENTOLIN HFA 108 (90 BASE) MCG/ACT AEROSOL SOLUTION 1 PUFF NEEDED INHALATION 3 TIMES A DAY TAKING CICLOPIROX 8 % SOLUTION 1 APPLICATION EXTERNALLY ONCE A DAY TAKING SYMBICORT 160-4.5 MCG/ACT AEROSOL 2 PUFFS INHALATION TWICE A DAY TAKING HYOSCYAMINE SULFATE 0.125 MG TABLET DISINTEGRATING 1 TABLET ON THE TONGUE AND ALLOW TO DISSOLVE NEEDED ORALLY EVERY 4 HRS TAKING BACLOFEN 10 MG TABLET 1 TABLET WITH FOOD OR MILK ORALLY THREE TIMES A DAY TAKING HYDROCODONE-ACETAMINOPHEN 10-325 MG TABLET 1 TABLET NEEDED ORALLY EVERY 6 HRS WHEN NECESSARY FOR PAIN MDD 4 TAKING ALOSETRON HCL 0.5 MG TABLET 1 TABLET ORALLY TWICE A DAY TAKING METFORMIN HCL 500 MG TABLET 1 TABLET WITH A MEAL ORALLY ONCE A DAY NOT-TAKING LASIX 20 MG TABLET 1 TABLET ORALLY ONCE A DAY NOT-TAKING METFORMIN & DIET MANAGE PROD 100MG ORALLY 2 @ AM, 1 @ PM MEDICATION LIST REVIEWED AND RECONCILED WITH THE PATIENT PAST MEDICAL HISTORY CERVICAL RADICULOPATHY LUMBAR RADICULOPATHY FIBROMYALGIA CHRONIC NECK PAIN CHRONIC LOW BACK PAIN GERD HYPOTHYROIDISM DM CARPAL TUNNEL IN RIGHT HAND ALLERGIES SEASONAL: SNEEZING - ALLERGY STEROIDS: NAUSEA/HEADACHE - SIDE EFFECTS SURGICAL HISTORY ACDF C4/C5 C5/C6 LAMINECTOMY AND DISCECTOMY L5/S1 02/2008 CHOLECYSTECTOMY THYROIDECTOMY REPAIR OF DEVIATED SEPTUM C-SECTIONS X2 LEFT KNEE REPLACEMENT PROUD FLESH REMOVED FROM LEFT THUMB FAMILY HISTORY FATHER: MOTHER: 3 SISTER(S) . 2DAUGHTER(S) - HEALTHY. SOCIAL HISTORY GENERAL: TOBACCO USE ARE YOU A:NONSMOKER LATEX QUESTIONNAIRE LATEX ALLERGY : HAVE YOU EVER DEVELOPED ANY TYPE OF REACTION AFTER HANDLING LATEX PRODUCTS SUCH RUBBER GLOVES, CONDOMS, DIAPHRAGMS, BALLOONS, SOCKS, OR UNDERWEAR?NO LATEX ALLERGY : HAVE YOU EVER DEVELOPED ANY TYPE OF REACTION DURING OR AFTER DENTAL APPOINTMENT, VAGINAL/RECTAL EXAMINATION, SURGICAL PROCEDURE, OR ANY OTHER EXPOSURE?NO LATEX RISK : HAVE YOU EVER HAD ANY DIFFICULTY BREATHING OR HIVES AFTER EATING OR HANDLING ANY FRUITS, OR VEGETABLES; SUCH KIWI, BANANAS, STONE FRUITS, OR CHESTNUTSNO LATEX RISK : DO YOU HAVE A PREVIOUS PERSONAL HISTORY OF MORE THAN NINE SURGERIES, SPINA BIFIDA, OR REPEATED CATHERIZATIONS? NO LATEX RISK : ARE YOU FREQUENTLY EXPOSED TO LATEX PRODUCTS IN YOUR OCCUPATION?NO DATE ASKED : 06/06/2020 ALCOHOL USE: NO. ALCOHOL SCREENING DID YOU HAVE A DRINK CONTAINING ALCOHOL IN THE PAST YEAR?NO POINTS0 INTERPRETATIONNEGATIVE RECREATIONAL DRUG USE DRUG USE?NO LANGUAGE LANGUAGES SPOKEN:[place] LEARNING BARRIERS / SPECIAL NEEDS BARRIERS TO LEARNING?NO HEARING IMPAIRED?NO VISION IMPAIRED?YES :CORRECTIVE LENSES READING COGNITIVELY IMPAIRED?NO READINESS TO LEARN?YES LEARNING PREFERENCES?NO LEARNING CAPABILITIES PRESENT?YES EMOTIONAL BARRIERS?NO SPECIAL DEVICES?NO PROCESS ENGINEERING TECHNICIAN NEEDED?NO DOMESTIC VIOLENCE DO YOU FEEL SAFE IN YOUR ENVIRONMENT?YES - HAS THE PATIENT BEEN EDUCATED REGARDING HIS/HER PLAN OF CARE?YES HAS THE PATIENT BEEN EDUCATED REGARDING PAIN, THE RISK FOR PAIN, THE IMPORTANCE OF EFFECTIVE PAIN MANAGEMENT, AND THE PAIN ASSESSMENT PROCESS?YES ADVANCE DIRECTIVE ADVANCE DIRECTIVE DISCUSSED WITH PATIENT:YES DELINED PAPERWORK HOSPITALIZATION/MAJOR DIAGNOSTIC PROCEDURE SURGERY RELATED REVIEW OF SYSTEMS CONSTITUTIONAL: ANY RECENT FEVER NO . CHILLS NO . WEIGHT CHANGE OF UNKNOWN REASONS NO . GASTROENTEROLOGY: NEW UNEXPLAINABLE CHANGES IN BOWEL CONTROL NO . CONSTIPATION NO . GENITOURINARY: ANY NEW CHANGE IN BLADDER CONTROL? NO . NEUROLOGY: NEW ONSET DIZZINESS OR NEUROLOGICAL CHANGES NOT MENTIONED NO . NEW NUMBNESS OR PAIN PATTERNS NOT MENTIONED AND PERTINENT TO TODAY'S VISIT NO . CARDIOLOGY: NEW CHEST PRESSURE NO . PATIENT DENIES NO . RESPIRATORY: UNEXPLAINABLE COUGH NO . NEW SHORTNESS OF BREATH NO . VITAL SIGNS WT 270.8 LBS, HT 69.34 IN, BMI 39.59 INDEX, BP 128/61 MM HG, HR 75 /MIN, RR 18 /MIN, TEMP 97.2 F, OXYGEN SAT % 96%, SAFE IN ENV? (Y/N) YES, NA INITIALS AW 1115T.AMOS MARCOS. EXAMINATION GENERAL EXAMINATION: GENERALAWAKE,ALERT ,PLEASANT . PSYCHAFFECT NORMAL . LUNGS:LUNG MOLINA ARE CLEAR TO AUSCULTATION BILATERALLY. GOOD MOVEMENT OF AIR . HEART:S1, S2 IN A REGULAR RATE AND RHYTHM. NO SIGNIFICANT MURMURS, RUBS OR GALLOPS NOTED . ASSESSMENTS POST LAMINECTOMY SYNDROME - M96.1 (PRIMARY) TREATMENT POST LAMINECTOMY SYNDROME REFILL HYDROCODONE-ACETAMINOPHEN TABLET, 10-325 MG, 1 TABLET NEEDED, ORALLY, EVERY 6 HRS WHEN NECESSARY FOR PAIN MDD 4, 30 DAYS, 120, REFILLS 0 REFILL BACLOFEN TABLET, 10 MG, 1 TABLET WITH FOOD OR MILK, ORALLY, THREE TIMES A DAY, 30 DAYS, 90 TABLET, REFILLS 2 NOTES: ISTOP REGISTRY REVIEWED AND DEMONSTRATES COMPLLIANCE. BRINGS IN MEDICATIONS WHICH IS APPROPRIATE FOR WHAT WAS DISPENSED. RECENT URINE TOXICOLOGY REVIEWED. NO UNAUTHORIZED MEDICATIONS. NO ILLICIT SUBSTANCES AND PRESCRIBED MEDICATIONS WERE PRESENT. PROCEDURE CODES FA211 ESTABILISHED [facility]IENT [facility] DISPOSITION & COMMUNICATION FOLLOW UP 3 MONTHS (REASON: TOX/MED MGMNT) ELECTRONICALLY SIGNED BY NELLY ANDINO ON 06/07/2020 AT 02:18 PM EDT DISCLAIMER : THIS IS A VISIT SUMMARY EXTRACTED FROM THE [employer] CHART. IT IS NOT A COPY OF THE [employer] PROGRESS NOTE. JENNA
== END ==
LOC: M PAIN 11:00
PROVIDERS: ATTEND Nurse Practitioner Family
DX: M96.1 Postlaminectomy syndrome, not elsewhere classified (principal); M54.12 Radiculopathy, cervical region; M54.16 Radiculopathy, lumbar region; M79.7 Fibromyalgia; K21.9 Gastro-esophageal reflux disease without esophagitis; E03.9 Hypothyroidism, unspecified; E11.9 Type 2 diabetes mellitus without complications; Z79.891 Long term (current) use of opiate analgesic; Z79.899 Other long term (current) drug therapy; J30.2 Other seasonal allergic rhinitis; Z88.8 Allergy status to other drugs, medicaments and biological substances

== ENCOUNTER → 2020-06-29 | Outpatient (CLI) | payer MEDICARE ==
--- NOTE | 2020-06-29 16:14 | REP ---
INDICATION: LOCALIZED EDEMA COMPARISON: None. TECHNIQUE: Real time compression and duplex Doppler interrogation of the bilateral lower extremity deep venous system is performed. FINDINGS: Bilaterally, the common femoral, superficial femoral and popliteal veins are fully compressible with transducer pressure and demonstrate normal spontaneous and phasic flow, without evidence of deep venous thrombosis. IMPRESSION: No evidence of deep venous thrombosis of the bilateral lower extremity femoral popliteal venous system. <Electronically signed by Keagan Eng > 06/29/20 [id number]
== END ==
LOC: M RAD 13:58
PROVIDERS: ATTEND Internal Medicine Cardiovascular Disease
DX: R60.0 Localized edema (principal); M79.604 Pain in right leg; M79.605 Pain in left leg

== ENCOUNTER → 2020-07-05 | Outpatient (CLI) | payer MEDICARE ==
[2020-07-05 12:24] LABS: HEMATOCRIT 40.8 % (36.0-47.0); HEMOGLOBIN 12.7 g/dl (12.0-15.5); MEAN CORPUSCULAR HEMOGLOBIN 28.5 pg (27.0-33.0); MEAN CORPUSCULAR HGB CONC 31.1 g/dl (32.0-36.5); MEAN CORPUSCULAR VOLUME 91.5 fl (80.0-96.0); PLATELET COUNT, AUTOMATED 292 10^3/uL (150-450); RED BLOOD COUNT 4.46 10^6/uL (4.00-5.40); WHITE BLOOD COUNT 7.4 10^3/uL (4.0-10.0)
== END ==
LOC: M WUC 09:35
PROVIDERS: ATTEND Internal Medicine Cardiovascular Disease
DX: R23.3 Spontaneous ecchymoses (principal)

== ENCOUNTER → 2020-07-26 | Outpatient (CLI) | payer MEDICARE ==
[2020-07-26 17:32] LABS: BLOOD UREA NITROGEN 15 MG/DL (7-18); CALCIUM LEVEL 8.4 MG/DL (8.5-10.1); CARBON DIOXIDE LEVEL 27 MEQ/L (21-32); CHLORIDE LEVEL 105 MEQ/L (98-107); CREATININE FOR GFR 0.75 MG/DL (0.55-1.30); GLOMERULAR FILTRATION RATE > 60.0 (>51); GLUCOSE, FASTING 97 MG/DL (70-100); MAGNESIUM LEVEL 1.6 MG/DL (1.8-2.4); NT-PRO BNP 218 PG/ML (<125); SODIUM LEVEL 141 MEQ/L (136-145)
== END ==
LOC: M WUC 13:23
PROVIDERS: ATTEND Physician Assistant
DX: R60.0 Localized edema (principal)

== ENCOUNTER → 2020-07-26 | Outpatient (CLI) | payer MEDICARE ==
[2020-07-26 17:38] LABS: ALBUMIN 3.6 GM/DL (3.2-5.2); ALT/SGPT 17 U/L (12-78); BILIRUBIN,TOTAL 0.3 MG/DL (0.2-1.0); BLOOD UREA NITROGEN 15 MG/DL (7-18); CALCIUM LEVEL 8.5 MG/DL (8.5-10.1); CARBON DIOXIDE LEVEL 26 MEQ/L (21-32); CHLORIDE LEVEL 106 MEQ/L (98-107); CHOLESTEROL LEVEL 200 MG/DL (<200); CHOLESTEROL RISK RATIO 3.703 (<5); CREATININE FOR GFR 0.78 MG/DL (0.55-1.30); FREE T4 1.13 NG/DL (0.76-1.46); GLOMERULAR FILTRATION RATE > 60.0 (>51); GLUCOSE, FASTING 100 MG/DL (70-100); HDL CHOLESTEROL 54 MG/DL (>40); LDL CHOLESTEROL 111 MG/DL (<100); NON-HDL-C 146 MG/DL; SODIUM LEVEL 141 MEQ/L (136-145); THYROID STIMULATING HORMONE 0.607 uIU/ML (0.358-3.740); TOTAL PROTEIN 6.7 GM/DL (6.4-8.2); TRIGLYCERIDES LEVEL 177 MG/DL (<150)
[2020-07-26 17:43] LABS: HEMOGLOBIN A1c 5.5 %
[2020-07-26 23:02] LABS: CREATININE, URINE 61.3 MG/DL; MALB URINE SIEMENS < 5.0 MG/L; MAU/CREAT RATIO 8.1 MCG/MG (0.0-30.0)
== END ==
LOC: M WUC 13:21
PROVIDERS: ATTEND Nurse Practitioner Family
DX: E11.9 Type 2 diabetes mellitus without complications (principal); E03.9 Hypothyroidism, unspecified; R60.0 Localized edema

== ENCOUNTER → 2020-08-20 | Outpatient (CLI) | payer SELFPAY | LOC: M LABSMTC 09:26 | PROVIDERS: ATTEND Pediatrics | DX: Z11.52 Encounter for screening for COVID-19 (principal) ==

== ENCOUNTER → 2020-08-31 | Outpatient (CLI) | payer MEDICARE ==
--- NOTE | 2020-09-02 04:38 | ECWPNPC ---
PATIENT NAME: VALENTINO DAY : 1960 GENDER: FEMALE VISIT DATE: 08/31/2020 DISCHARGE DATE: 08/31/20 1046 VISIT LOCKED DATE TIME: PHYSICIAN: AUDREY ROMERO RESOURCE: AUDREY ROMERO REASON FOR APPOINTMENT 1. TOX/MED MGMNT HISTORY OF PRESENT ILLNESS GENERAL: HERE FOR FOLLOW-UP AND MEDICATION MANAGEMENT FOR CHRONIC NECK AND LOW BACK PAIN. FINDS CURRENT CHRONIC PAIN MEDICATION HELPFUL AT REDUCING PAIN AND KEEPING HER FUNCTIONAL. DENIES ADVERSE SIDE EFFECTS. BRINGS HER MEDICATION IN WHICH IS APPROPRIATE FOR WHAT WAS DISPENSED. RECENT URINE TOXICOLOGY IS REVIEWED AND WITHIN NORMAL LIMITS. - -. FALL RISK SCREENING: SCREENING : NO FALLS REPORTED IN THE LAST YEAR. PAIN SCREENING: PATIENT HAS A COMPLAINT OF ACUTE OR CHRONIC PAIN :YES LOCATION OF PAIN:NECK, LOW BACK INTENSITY OF PAIN (SCALE OF 1 TO 10):7 WHAT DOES YOUR PAIN FEEL LIKE:ACHING, BURNING, CONTINOUS DURATION:CONTINOUS, CONSTANT, ALL DAY PAIN IS INCREASED BY:PROLONGED STANDING PAIN IS DECREASED BY:USE OF PAIN MEDICATIONS, SITTING NURSING NOTE: -. PAIN CENTER INTAKE QUESTIONS: DO YOU HAVE A HISTORY OF MRSA? :NO DO YOU TAKE A BLOOD THINNERS? :NO DO YOU HAVE ANY BLEEDING DISORDERS? :NO ANY NEW NUMBNESS OR WEAKNESS IN YOUR LEGS OR ARMS? :YES BOTH FEET, BACK OF LEFT LEG ANY PACEMAKER,DEFIBRILLATOR, OR DORSAL COLUMN STIMULATOR? :NO LOOP RECODER DO YOU HAVE ANY RASHES OR OPEN SORES? :NO ARE YOU ALLERGIC TO IV DYE? :NO ARE YOU DIABETIC? :YES ANY NEW PROBLEMS WITH YOUR MEDICATIONS? :NO HAVE YOU RECEIVED A VACCINE IN THE PAST 30 DAYS? :YES 2ND COVID 05/25/2020 DO YOU PLAN TO RECEIVE A VACCINE IN THE NEXT 21 DAYS? :NO DO YOU NEED ANY PRESCRIPTION? :NO DO YOU TAKE ANY IMMUNOSUPPRESSIVE MEDICATIONS? :NO IS THERE A CHANCE YOU COULD BE ? :NO ARE YOU BREAST FEEDING? :NO CURRENT MEDICATIONS TAKING TRAZODONE HCL 100 MG TABLET 1 TABLET AT BEDTIME ORALLY ONCE A DAY TAKING DILTIAZEM HCL ER BEADS 180 MG CAPSULE EXTENDED RELEASE 24 HOUR 1 CAPSULE ORALLY ONCE A DAY TAKING FLECAINIDE ACETATE 100 MG TABLET DIRECTED ORALLY BID TAKING OMEPRAZOLE 20 MG CAPSULE DELAYED RELEASE 1 CAPSULE 30 MINUTES BEFORE MORNING MEAL ORALLY ONCE A DAY TAKING LEVOTHYROXINE SODIUM 150 MCG TABLET 1 TABLET IN THE MORNING ON AN EMPTY STOMACH ORALLY ONCE A DAY TAKING ZYRTEC ALLERGY 10 MG TABLET 1 TABLET ORALLY ONCE A DAY TAKING SUMATRIPTAN SUCCINATE 100 MG TABLET 1 TABLET AT LEAST 2 HOURS BETWEEN DOSES NEEDED ORALLY ONCE A DAY TAKING NAPROXEN 500 MG TABLET 1 TABLET WITH FOOD OR MILK NEEDED ORALLY 1 NEEDED TAKING VENTOLIN HFA 108 (90 BASE) MCG/ACT AEROSOL SOLUTION 1 PUFF NEEDED INHALATION 3 TIMES A DAY TAKING CICLOPIROX 8 % SOLUTION 1 APPLICATION EXTERNALLY ONCE A DAY TAKING SYMBICORT 160-4.5 MCG/ACT AEROSOL 2 PUFFS INHALATION TWICE A DAY TAKING HYOSCYAMINE SULFATE 0.125 MG TABLET DISINTEGRATING 1 TABLET ON THE TONGUE AND ALLOW TO DISSOLVE NEEDED ORALLY EVERY 4 HRS TAKING ALOSETRON HCL 0.5 MG TABLET 1 TABLET ORALLY TWICE A DAY TAKING METFORMIN HCL 500 MG TABLET 1 TABLET WITH A MEAL ORALLY ONCE A DAY TAKING BACLOFEN 10 MG TABLET 1 TABLET WITH FOOD OR MILK ORALLY THREE TIMES A DAY TAKING HYDROCODONE-ACETAMINOPHEN 10-325 MG TABLET 1 TABLET NEEDED ORALLY EVERY 6 HRS WHEN NECESSARY FOR PAIN MDD 4 TAKING OXYCODONE HCL 5 MG/5ML SOLUTION 5 ML NEEDED ORALLY ONCE A DAY NOT-TAKING LASIX 20 MG TABLET 1 TABLET ORALLY ONCE A DAY NOT-TAKING METFORMIN & DIET MANAGE PROD 100MG ORALLY 2 @ AM, 1 @ PM MEDICATION LIST REVIEWED AND RECONCILED WITH THE PATIENT PAST MEDICAL HISTORY CERVICAL RADICULOPATHY LUMBAR RADICULOPATHY FIBROMYALGIA CHRONIC NECK PAIN CHRONIC LOW BACK PAIN GERD HYPOTHYROIDISM DM CARPAL TUNNEL IN RIGHT HAND 2ND COVID 05/25/2020 ALLERGIES SEASONAL: SNEEZING - ALLERGY STEROIDS: NAUSEA/HEADACHE - SIDE EFFECTS SURGICAL HISTORY ACDF C4/C5 C5/C6 LAMINECTOMY AND DISCECTOMY L5/S1 02/2008 CHOLECYSTECTOMY THYROIDECTOMY REPAIR OF DEVIATED SEPTUM C-SECTIONS X2 LEFT KNEE REPLACEMENT PROUD FLESH REMOVED FROM LEFT THUMB TORN ROTATOR CUFF-RIGHT 08/24/2020 ARTHROSCOPY 08/24/2020 FAMILY HISTORY FATHER: MOTHER: DAUGHTER(S): ALIVE 3 SISTER(S) . 2DAUGHTER(S) - HEALTHY. SOCIAL HISTORY GENERAL: TOBACCO USE ARE YOU A:NONSMOKER LATEX QUESTIONNAIRE LATEX ALLERGY : HAVE YOU EVER DEVELOPED ANY TYPE OF REACTION AFTER HANDLING LATEX PRODUCTS SUCH RUBBER GLOVES, CONDOMS, DIAPHRAGMS, BALLOONS, SOCKS, OR UNDERWEAR?NO LATEX ALLERGY : HAVE YOU EVER DEVELOPED ANY TYPE OF REACTION DURING OR AFTER DENTAL APPOINTMENT, VAGINAL/RECTAL EXAMINATION, SURGICAL PROCEDURE, OR ANY OTHER EXPOSURE?NO LATEX RISK : HAVE YOU EVER HAD ANY DIFFICULTY BREATHING OR HIVES AFTER EATING OR HANDLING ANY FRUITS, OR VEGETABLES; SUCH KIWI, BANANAS, STONE FRUITS, OR CHESTNUTSNO LATEX RISK : DO YOU HAVE A PREVIOUS PERSONAL HISTORY OF MORE THAN NINE SURGERIES, SPINA BIFIDA, OR REPEATED CATHERIZATIONS? NO LATEX RISK : ARE YOU FREQUENTLY EXPOSED TO LATEX PRODUCTS IN YOUR OCCUPATION?NO DATE ASKED : 08/31/2020 ALCOHOL USE: NO. ALCOHOL SCREENING DID YOU HAVE A DRINK CONTAINING ALCOHOL IN THE PAST YEAR?NO POINTS0 INTERPRETATIONNEGATIVE RECREATIONAL DRUG USE DRUG USE?NO LANGUAGE LANGUAGES SPOKEN:AMERICAN LEARNING BARRIERS / SPECIAL NEEDS BARRIERS TO LEARNING?NO HEARING IMPAIRED?NO VISION IMPAIRED?YES :CORRECTIVE LENSES READING COGNITIVELY IMPAIRED?NO READINESS TO LEARN?YES LEARNING PREFERENCES?NO LEARNING CAPABILITIES PRESENT?YES EMOTIONAL BARRIERS?NO SPECIAL DEVICES?YES :BRACE RIGHT HAND NURSE WOUND CARE NEEDED?NO DOMESTIC VIOLENCE DO YOU FEEL SAFE IN YOUR ENVIRONMENT?YES - HAS THE PATIENT BEEN EDUCATED REGARDING HIS/HER PLAN OF CARE?YES HAS THE PATIENT BEEN EDUCATED REGARDING PAIN, THE RISK FOR PAIN, THE IMPORTANCE OF EFFECTIVE PAIN MANAGEMENT, AND THE PAIN ASSESSMENT PROCESS?YES ADVANCE DIRECTIVE ADVANCE DIRECTIVE DISCUSSED WITH PATIENT:YES DELINED PAPERWORK HOSPITALIZATION/MAJOR DIAGNOSTIC PROCEDURE SURGERY RELATED REVIEW OF SYSTEMS CONSTITUTIONAL: ANY RECENT FEVER NO . CHILLS NO . WEIGHT CHANGE OF UNKNOWN REASONS NO . GASTROENTEROLOGY: NEW UNEXPLAINABLE CHANGES IN BOWEL CONTROL NO . CONSTIPATION NO . GENITOURINARY: ANY NEW CHANGE IN BLADDER CONTROL? NO . NEUROLOGY: NEW ONSET DIZZINESS OR NEUROLOGICAL CHANGES NOT MENTIONED NO . NEW NUMBNESS OR PAIN PATTERNS NOT MENTIONED AND PERTINENT TO TODAY'S VISIT NO . CARDIOLOGY: NEW CHEST PRESSURE NO . PATIENT DENIES NO . RESPIRATORY: UNEXPLAINABLE COUGH NO . NEW SHORTNESS OF BREATH NO . VITAL SIGNS WT 282.0 LBS, HT 69.34 IN, BMI 41.23 INDEX, BP 122/61 MM HG, HR 72 /MIN, RR 18 /MIN, TEMP 98.2 F, OXYGEN SAT % 96%, SAFE IN ENV? (Y/N) YES, NA INITIALS AW 1013T.AMOS MARCOS. EXAMINATION GENERAL EXAMINATION: GENERALAWAKE,ALERT ,PLEASANT . PSYCHAFFECT NORMAL . LUNGS:LUNG MOLINA ARE CLEAR TO AUSCULTATION BILATERALLY. GOOD MOVEMENT OF AIR . HEART:S1, S2 IN A REGULAR RATE AND RHYTHM. NO SIGNIFICANT MURMURS, RUBS OR GALLOPS NOTED . ASSESSMENTS CHRONIC PRESCRIPTION OPIATE USE - Z79.891 (PRIMARY) POST LAMINECTOMY SYNDROME - M96.1 TREATMENT CHRONIC PRESCRIPTION OPIATE USE CONTINUE BACLOFEN TABLET, 10 MG, 1 TABLET WITH FOOD OR MILK, ORALLY, THREE TIMES A DAY CONTINUE HYDROCODONE-ACETAMINOPHEN TABLET, 10-325 MG, 1 TABLET NEEDED, ORALLY, EVERY 6 HRS WHEN NECESSARY FOR PAIN MDD 4 LAB: URINE TEST GROUP PETE TRINIDAD 08/31/2020 10:40:23 AM > LAST DOSE: OXYCODONE 08/26/2020 , HYDROCODONE 08/31/2020 @ 7:30AM NOTES: ISTOP REGISTRY REVIEWED AND DEMONSTRATES COMPLLIANCE. BRINGS IN MEDICATIONS WHICH IS APPROPRIATE FOR WHAT WAS DISPENSED. RECENT URINE TOXICOLOGY REVIEWED. NO UNAUTHORIZED MEDICATIONS. NO ILLICIT SUBSTANCES AND PRESCRIBED MEDICATIONS WERE PRESENT. , RISKS OF NARCOTIC/OPIOD MEDICATIONS INCLUDES BUT IS NOT LIMITED TO RISK OF DEPENDANCE/DEVELOPMENT OF ADDICTION, MOOD DISTURBANCE AND DEPRESSION, OSTEOPOROSIS, HORMONAL AND LABIDAL CHANGES, RESPIRATORY DEPRESSION AND . PATIENT IS ADVISED NOT TO DRIVE OR DRINK ALCOHOL WHILE ON THESE MEDICATIONS. PROCEDURE CODES [id number] ESTABILISHED PATIENT [facility] CHARGE DISPOSITION & COMMUNICATION FOLLOW UP 3 MONTHS (REASON: LOW BACK PAIN/REVIEW URINE TOXICOLOGY) ELECTRONICALLY SIGNED BY NELLY ANDINO ON 09/01/2020 AT 01:36 PM EDT DISCLAIMER : THIS IS A VISIT SUMMARY EXTRACTED FROM THE [email or web address] CHART. IT IS NOT A COPY OF THE [employer] PROGRESS NOTE. JENNA
== END ==
LOC: M PAIN 10:00
PROVIDERS: ATTEND Nurse Practitioner Family
DX: M96.1 Postlaminectomy syndrome, not elsewhere classified (principal); M54.12 Radiculopathy, cervical region; M54.16 Radiculopathy, lumbar region; M79.7 Fibromyalgia; K21.9 Gastro-esophageal reflux disease without esophagitis; E03.9 Hypothyroidism, unspecified; E11.9 Type 2 diabetes mellitus without complications; J30.2 Other seasonal allergic rhinitis; Z79.891 Long term (current) use of opiate analgesic; Z79.84 Long term (current) use of oral hypoglycemic drugs; Z79.899 Other long term (current) drug therapy; Z88.8 Allergy status to other drugs, medicaments and biological substances

== ENCOUNTER → 2020-12-01 | Outpatient (CLI) | payer MEDICARE | LOC: M PAIN 10:00 | PROVIDERS: ATTEND Anesthesiology | DX: M96.1 Postlaminectomy syndrome, not elsewhere classified (principal); E11.9 Type 2 diabetes mellitus without complications; M79.7 Fibromyalgia; K21.9 Gastro-esophageal reflux disease without esophagitis; E03.9 Hypothyroidism, unspecified; Z88.8 Allergy status to other drugs, medicaments and biological substances; Z79.84 Long term (current) use of oral hypoglycemic drugs; Z79.899 Other long term (current) drug therapy ==

== ENCOUNTER → 2021-02-08 | Outpatient (CLI) | payer MEDICARE | LOC: M PAIN 09:45 | PROVIDERS: ATTEND Anesthesiology | DX: M96.1 Postlaminectomy syndrome, not elsewhere classified (principal); M47.22 Other spondylosis with radiculopathy, cervical region; M79.7 Fibromyalgia; M54.50 Low back pain, unspecified; K21.9 Gastro-esophageal reflux disease without esophagitis; E03.9 Hypothyroidism, unspecified; E11.9 Type 2 diabetes mellitus without complications; J30.1 Allergic rhinitis due to pollen; Z79.84 Long term (current) use of oral hypoglycemic drugs; Z79.891 Long term (current) use of opiate analgesic; Z79.899 Other long term (current) drug therapy; Z88.8 Allergy status to other drugs, medicaments and biological substances ==

== ENCOUNTER → 2021-07-27 | Outpatient (REF) | payer MEDICARE ==
[~2021-07-27] MED LIST changes: +OMEP-173 PO; -OMEP-218 PO
[2021-07-27 17:34] LABS: BASO % 0.5 % (0.0-1.0); EOS # 0.4 10^3/uL (0.0-0.5); HEMATOCRIT 27.9 % (36.0-47.0); HEMOGLOBIN 8.3 g/dl (12.0-15.5); LYMPH # 1.7 10^3/uL (1.5-5.0); LYMPH % 28.4 % (24.0-44.0); MEAN CORPUSCULAR HEMOGLOBIN 26.9 pg (27.0-33.0); MEAN CORPUSCULAR HGB CONC 29.7 g/dl (32.0-36.5); MEAN CORPUSCULAR VOLUME 90.6 fl (80.0-96.0); MONO # 0.4 10^3/uL (0.0-0.8); MONO % 6.7 % (2.0-8.0); NEUTROPHILS # 3.4 10^3/uL (1.5-8.5); NEUTROPHILS % 58.1 % (36.0-66.0); PLATELET COUNT, AUTOMATED 316 10^3/uL (150-450); RED BLOOD COUNT 3.08 10^6/uL (4.00-5.40); WHITE BLOOD COUNT 5.8 10^3/uL (4.0-10.0)
[2021-07-27 17:45] LABS: ALBUMIN 3.1 GM/DL (3.2-5.2); ALT/SGPT 13 U/L (12-78); BILIRUBIN,TOTAL 0.2 MG/DL (0.2-1.0); BLOOD UREA NITROGEN 9 MG/DL (7-18); CALCIUM LEVEL 7.8 MG/DL (8.8-10.2); CARBON DIOXIDE LEVEL 29 MEQ/L (21-32); CHLORIDE LEVEL 106 MEQ/L (98-107); CREATININE FOR GFR 0.91 MG/DL (0.55-1.30); GLOMERULAR FILTRATION RATE > 60.0 (>45); GLUCOSE, FASTING 74 MG/DL (70-100); POTASSIUM SERUM 4.6 MEQ/L (3.5-5.1); SODIUM LEVEL 139 MEQ/L (136-145); TOTAL PROTEIN 6.5 GM/DL (6.4-8.2)
[2021-07-27 18:12] LABS: ERYTHROCYTE SEDIMENTATION RATE 52 mm/hr (0-30)
== END ==
LOC: M LAB REF 16:03
PROVIDERS: ATTEND Internal Medicine Infectious Disease
DX: M00.062 Staphylococcal arthritis, left knee (principal)

== ENCOUNTER → 2021-07-31 | Outpatient (CLI) | payer MEDICARE | LOC: M PAIN 08:30 → M TMPAIN 08:30 | PROVIDERS: ATTEND Anesthesiology | DX: M96.1 Postlaminectomy syndrome, not elsewhere classified (principal); M79.7 Fibromyalgia; K21.9 Gastro-esophageal reflux disease without esophagitis; E03.9 Hypothyroidism, unspecified; E11.9 Type 2 diabetes mellitus without complications; M54.16 Radiculopathy, lumbar region; J30.1 Allergic rhinitis due to pollen; M54.12 Radiculopathy, cervical region; Z79.891 Long term (current) use of opiate analgesic; Z79.899 Other long term (current) drug therapy; Z88.8 Allergy status to other drugs, medicaments and biological substances ==

== ENCOUNTER → 2021-08-02 | Outpatient (REF) | payer MEDICARE ==
[2021-08-02 17:40] LABS: BASO % 0.3 % (0.0-1.0); EOS # 0.3 10^3/uL (0.0-0.5); EOS % 3.4 % (0.0-3.0); HEMATOCRIT 27.1 % (36.0-47.0); HEMOGLOBIN 8.3 g/dl (12.0-15.5); LYMPH # 1.7 10^3/uL (1.5-5.0); LYMPH % 22.5 % (24.0-44.0); MEAN CORPUSCULAR HEMOGLOBIN 26.9 pg (27.0-33.0); MEAN CORPUSCULAR HGB CONC 30.6 g/dl (32.0-36.5); MONO # 0.6 10^3/uL (0.0-0.8); MONO % 7.6 % (2.0-8.0); NEUTROPHILS # 4.8 10^3/uL (1.5-8.5); NEUTROPHILS % 65.9 % (36.0-66.0); PLATELET COUNT, AUTOMATED 334 10^3/uL (150-450); RED BLOOD COUNT 3.08 10^6/uL (4.00-5.40); WHITE BLOOD COUNT 7.3 10^3/uL (4.0-10.0)
[2021-08-02 18:12] LABS: ALBUMIN 3.2 GM/DL (3.2-5.2); ALT/SGPT 10 U/L (12-78); BILIRUBIN,TOTAL 0.3 MG/DL (0.2-1.0); BLOOD UREA NITROGEN 14 MG/DL (7-18); CALCIUM LEVEL 7.9 MG/DL (8.8-10.2); CARBON DIOXIDE LEVEL 29 MEQ/L (21-32); CHLORIDE LEVEL 101 MEQ/L (98-107); CREATININE FOR GFR 0.88 MG/DL (0.55-1.30); GLOMERULAR FILTRATION RATE > 60.0 (>45); GLUCOSE, FASTING 76 MG/DL (70-100); POTASSIUM SERUM 5.1 MEQ/L (3.5-5.1); SODIUM LEVEL 135 MEQ/L (136-145); TOTAL PROTEIN 6.6 GM/DL (6.4-8.2)
[2021-08-02 19:49] LABS: ERYTHROCYTE SEDIMENTATION RATE 49 mm/hr (0-30)
== END ==
LOC: M LAB REF 17:15
PROVIDERS: ATTEND Internal Medicine Infectious Disease
DX: M00.062 Staphylococcal arthritis, left knee (principal)

== ENCOUNTER → 2021-08-09 | Outpatient (REF) | payer MEDICARE ==
[2021-08-09 14:26] LABS: BASO % 0.4 % (0.0-1.0); EOS # 0.3 10^3/uL (0.0-0.5); HEMOGLOBIN 8.1 g/dl (12.0-15.5); LYMPH # 1.3 10^3/uL (1.5-5.0); LYMPH % 18.7 % (24.0-44.0); MEAN CORPUSCULAR HEMOGLOBIN 25.3 pg (27.0-33.0); MEAN CORPUSCULAR HGB CONC 28.9 g/dl (32.0-36.5); MEAN CORPUSCULAR VOLUME 87.5 fl (80.0-96.0); MONO # 0.6 10^3/uL (0.0-0.8); MONO % 9.3 % (2.0-8.0); NEUTROPHILS # 4.5 10^3/uL (1.5-8.5); NEUTROPHILS % 67.5 % (36.0-66.0); PLATELET COUNT, AUTOMATED 347 10^3/uL (150-450); WHITE BLOOD COUNT 6.7 10^3/uL (4.0-10.0)
[2021-08-09 14:57] LABS: ALBUMIN 3.4 GM/DL (3.2-5.2); ALT/SGPT 11 U/L (12-78); BILIRUBIN,TOTAL 0.3 MG/DL (0.2-1.0); BLOOD UREA NITROGEN 12 MG/DL (7-18); C REACTIVE PROTEIN QUANTITATIV 0.48 MG/DL (0.00-0.30); CALCIUM LEVEL 8.4 MG/DL (8.8-10.2); CARBON DIOXIDE LEVEL 26 MEQ/L (21-32); CHLORIDE LEVEL 104 MEQ/L (98-107); CREATININE FOR GFR 0.92 MG/DL (0.55-1.30); GLOMERULAR FILTRATION RATE > 60.0 (>45); GLUCOSE, FASTING 76 MG/DL (70-100); POTASSIUM SERUM 4.4 MEQ/L (3.5-5.1); SODIUM LEVEL 138 MEQ/L (136-145); TOTAL PROTEIN 6.7 GM/DL (6.4-8.2)
[2021-08-09 15:08] LABS: ERYTHROCYTE SEDIMENTATION RATE 46 mm/hr (0-30)
== END ==
LOC: M LAB REF 12:01
DX: M00.062 Staphylococcal arthritis, left knee (principal)

== ENCOUNTER → 2021-08-16 | Outpatient (CLI) | payer MEDICARE ==
[2021-08-16 17:45] LABS: BASO % 0.5 % (0.0-1.0); EOS # 0.2 10^3/uL (0.0-0.5); EOS % 2.9 % (0.0-3.0); HEMATOCRIT 28.5 % (36.0-47.0); HEMOGLOBIN 8.5 g/dl (12.0-15.5); LYMPH # 1.4 10^3/uL (1.5-5.0); LYMPH % 22.1 % (24.0-44.0); MEAN CORPUSCULAR HEMOGLOBIN 25.6 pg (27.0-33.0); MEAN CORPUSCULAR HGB CONC 29.8 g/dl (32.0-36.5); MEAN CORPUSCULAR VOLUME 85.8 fl (80.0-96.0); MONO # 0.5 10^3/uL (0.0-0.8); MONO % 7.8 % (2.0-8.0); NEUTROPHILS # 4.2 10^3/uL (1.5-8.5); NEUTROPHILS % 66.4 % (36.0-66.0); PLATELET COUNT, AUTOMATED 353 10^3/uL (150-450); RED BLOOD COUNT 3.32 10^6/uL (4.00-5.40); WHITE BLOOD COUNT 6.3 10^3/uL (4.0-10.0)
[2021-08-16 18:03] LABS: ALBUMIN 3.6 GM/DL (3.2-5.2); ALT/SGPT 10 U/L (12-78); BILIRUBIN,TOTAL 0.2 MG/DL (0.2-1.0); BLOOD UREA NITROGEN 11 MG/DL (7-18); CALCIUM LEVEL 8.6 MG/DL (8.8-10.2); CARBON DIOXIDE LEVEL 28 MEQ/L (21-32); CHLORIDE LEVEL 99 MEQ/L (98-107); CREATININE FOR GFR 0.86 MG/DL (0.55-1.30); GLOMERULAR FILTRATION RATE > 60.0 (>45); GLUCOSE, FASTING 92 MG/DL (70-100); POTASSIUM SERUM 4.3 MEQ/L (3.5-5.1); RHEUMATOID FACTOR QUANT < 10.0 IU/ML (<15.0); SODIUM LEVEL 136 MEQ/L (136-145); TOTAL PROTEIN 7.1 GM/DL (6.4-8.2)
[2021-08-16 18:18] LABS: VITAMIN B12 LEVEL 424 PG/ML (247-911)
[2021-08-16 18:20] LABS: FOLATE 12.8 NG/ML (>5.4)
[2021-08-16 18:54] LABS: ERYTHROCYTE SEDIMENTATION RATE 60 mm/hr (0-30)
== END ==
LOC: M PLALAB 14:44
PROVIDERS: ATTEND Psychiatry & Neurology Neurology
DX: R41.3 Other amnesia (principal); E53.8 Deficiency of other specified B group vitamins

== ENCOUNTER → 2022-01-11 | Outpatient (CLI) | payer MEDICARE | LOC: M PAIN 11:00 | PROVIDERS: ATTEND Anesthesiology | DX: Z51.81 Encounter for therapeutic drug level monitoring (principal); Z79.891 Long term (current) use of opiate analgesic; M79.18 Myalgia, other site; M79.7 Fibromyalgia; M54.12 Radiculopathy, cervical region; M54.16 Radiculopathy, lumbar region; K21.9 Gastro-esophageal reflux disease without esophagitis; J30.1 Allergic rhinitis due to pollen; E03.9 Hypothyroidism, unspecified; E11.9 Type 2 diabetes mellitus without complications; Z86.14 Personal history of Methicillin resistant Staphylococcus aureus infection; Z79.890 Hormone replacement therapy; Z79.899 Other long term (current) drug therapy; Z88.8 Allergy status to other drugs, medicaments and biological substances ==

== ENCOUNTER → 2022-04-30 | Outpatient (CLI) | payer MEDICARE, MEDICAID | LOC: M RAD 11:42 | PROVIDERS: ATTEND Anesthesiology | DX: M54.2 Cervicalgia (principal) ==

== ENCOUNTER → 2022-04-30 | Outpatient (CLI) | payer MEDICARE, MEDICAID | LOC: M LABSMTC 10:13 | PROVIDERS: ATTEND Anesthesiology | DX: Z01.818 Encounter for other preprocedural examination (principal); Z11.52 Encounter for screening for COVID-19 ==

== ENCOUNTER → 2022-05-03 | Outpatient (CLI) | payer MEDICARE ==
[~2022-05-03] MED LIST changes: +BUPIVACAINE HCL 0.25% 10ML VIAL As Ordered ONE; +BUPIVACAINE HCL 0.25% 30ML VIAL As Ordered ONE; +NORCO, ANEXSIA 5/325MG TABLET (HYDROcodone/ACETAMINOPHEN) As Ordered ONE; +TRIAMCINOLONE ACETONIDE SUSP 40MG/ML 1ML VIAL As Ordered ONE; +diazePAM 5MG TABLET As Ordered ONE
== END ==
LOC: M PAIN 14:30
PROVIDERS: ATTEND Anesthesiology
DX: Z53.21 Procedure and treatment not carried out due to patient leaving prior to being seen by health care provider (principal)

== ENCOUNTER → 2022-06-12 | Outpatient (CLI) | payer MEDICARE ==
[~2022-06-12] MED LIST changes: -TRIAMCINOLONE ACETONIDE SUSP 40MG/ML 1ML VIAL As Ordered ONE
== END ==
LOC: M PAIN 07:45
PROVIDERS: ATTEND Anesthesiology
DX: M79.18 Myalgia, other site (principal); M54.16 Radiculopathy, lumbar region; M54.12 Radiculopathy, cervical region; M79.7 Fibromyalgia; K21.9 Gastro-esophageal reflux disease without esophagitis; E03.9 Hypothyroidism, unspecified; E11.9 Type 2 diabetes mellitus without complications; Z79.890 Hormone replacement therapy; Z79.85 Long-term (current) use of injectable non-insulin antidiabetic drugs; Z79.891 Long term (current) use of opiate analgesic; Z79.899 Other long term (current) drug therapy; Z88.8 Allergy status to other drugs, medicaments and biological substances

== ENCOUNTER → 2022-06-18 | Outpatient (REF) | payer MEDICARE ==
[~2022-06-18] MED LIST changes: -BUPIVACAINE HCL 0.25% 10ML VIAL As Ordered ONE; -BUPIVACAINE HCL 0.25% 30ML VIAL As Ordered ONE; -NORCO, ANEXSIA 5/325MG TABLET (HYDROcodone/ACETAMINOPHEN) As Ordered ONE; -diazePAM 5MG TABLET As Ordered ONE
== END ==
LOC: M LAB REF 06-17 14:48
PROVIDERS: ATTEND Internal Medicine Gastroenterology
DX: R19.7 Diarrhea, unspecified (principal); D64.9 Anemia, unspecified

== ENCOUNTER → 2022-07-05 | Outpatient (CLI) | payer MEDICARE | LOC: M PAIN 16:15 | PROVIDERS: ATTEND Nurse Practitioner Family | DX: M79.18 Myalgia, other site (principal); M96.1 Postlaminectomy syndrome, not elsewhere classified; M54.12 Radiculopathy, cervical region; M54.16 Radiculopathy, lumbar region; M79.7 Fibromyalgia; K21.9 Gastro-esophageal reflux disease without esophagitis; E03.9 Hypothyroidism, unspecified; E11.9 Type 2 diabetes mellitus without complications; Z88.8 Allergy status to other drugs, medicaments and biological substances; Z79.891 Long term (current) use of opiate analgesic; Z79.899 Other long term (current) drug therapy; Z79.890 Hormone replacement therapy; J30.1 Allergic rhinitis due to pollen ==

== ENCOUNTER → 2022-07-16 | Outpatient (CLI) | payer MEDICARE | LOC: M PLAIMG 15:42 | PROVIDERS: ATTEND Nurse Practitioner Family | DX: R05.1 Acute cough (principal) ==

== ENCOUNTER 2022-09-17 12:52 | Day surgery (SDC) | payer MEDICARE ==
[~2022-09-17] VITALS: Ht 175.3 cm; Wt 131.8 kg
[~2022-09-17 12:52] MED LIST changes: +ALBU8.5H; +FERR325T19 PO; +LEVO112T2 PO; +LEVO150T7 PO; +METO1TAB7 PO; +NS 1,000 ML IV ONE; +SERT50TA29 PO; +TORS10TA3 PO
[2022-09-17] MEDS ORDERED: LIDOCAINE 2% 100MG/5ML SDV (FOR ANES.) As Ordered ONE (13:59)
[2022-09-17] MEDS ORDERED: fentaNYL 100 MCG/2 ML INJECTION As Ordered ONE (13:59)
[2022-09-17] MEDS ORDERED: propofoL 200 MG/20 ML VIAL As Ordered ONE ×3 (14:02→14:31)
[2022-09-17 14:38] VITALS: TEMP 98.3
[2022-09-17 14:55] VITALS: BP 140/65; O2SAT 98
== END 2022-09-17 15:21 | disposition home or self-care (01) ==
LOC: M OPP 12:52
PROVIDERS: ATTEND Internal Medicine Gastroenterology
DX: K64.0 First degree hemorrhoids (principal); K57.30 Diverticulosis of large intestine without perforation or abscess without bleeding; D50.9 Iron deficiency anemia, unspecified; K44.9 Diaphragmatic hernia without obstruction or gangrene; Z79.51 Long term (current) use of inhaled steroids; Z79.891 Long term (current) use of opiate analgesic
CPT/HCPCS: 43239; 45380; 88305; J3010

== ENCOUNTER → 2022-12-04 | Outpatient (CLI) | payer MEDICARE ==
[~2022-12-04] MED LIST changes: -NS 1,000 ML IV ONE
== END ==
LOC: M RAD 11:39
PROVIDERS: ATTEND Nurse Practitioner Family
DX: M96.1 Postlaminectomy syndrome, not elsewhere classified (principal)

== ENCOUNTER → 2022-12-18 | Outpatient (CLI) | payer MEDICARE | LOC: M PAIN 09:45 | PROVIDERS: ATTEND Nurse Practitioner Family | DX: M96.1 Postlaminectomy syndrome, not elsewhere classified (principal); G89.29 Other chronic pain; M54.12 Radiculopathy, cervical region; M54.16 Radiculopathy, lumbar region; M79.7 Fibromyalgia; M54.50 Low back pain, unspecified; K21.9 Gastro-esophageal reflux disease without esophagitis; E03.9 Hypothyroidism, unspecified; J30.1 Allergic rhinitis due to pollen; E11.9 Type 2 diabetes mellitus without complications; Z79.890 Hormone replacement therapy; Z79.891 Long term (current) use of opiate analgesic; Z79.899 Other long term (current) drug therapy; Z88.8 Allergy status to other drugs, medicaments and biological substances ==

== ENCOUNTER → 2023-03-27 | Outpatient (REF) | payer MEDICARE | LOC: M PLALAB 15:42 | PROVIDERS: ATTEND Advanced Practice Midwife | DX: Z12.4 Encounter for screening for malignant neoplasm of cervix (principal); R87.610 Atypical squamous cells of undetermined significance on cytologic smear of cervix (ASC-US); R87.810 Cervical high risk human papillomavirus (HPV) DNA test positive | CPT/HCPCS: 87624; G0123 ==

== ENCOUNTER → 2023-04-02 | Outpatient (CLI) | payer MEDICARE | LOC: M PAIN 15:00 | PROVIDERS: ATTEND Nurse Practitioner Family | DX: M96.1 Postlaminectomy syndrome, not elsewhere classified (principal); G89.29 Other chronic pain; E11.9 Type 2 diabetes mellitus without complications; M54.12 Radiculopathy, cervical region; M54.16 Radiculopathy, lumbar region; M79.7 Fibromyalgia; K21.9 Gastro-esophageal reflux disease without esophagitis; E03.9 Hypothyroidism, unspecified; Z79.890 Hormone replacement therapy; Z79.84 Long term (current) use of oral hypoglycemic drugs; Z79.891 Long term (current) use of opiate analgesic; Z79.899 Other long term (current) drug therapy; Z88.8 Allergy status to other drugs, medicaments and biological substances ==

== ENCOUNTER → 2023-04-16 | Outpatient (CLI) | payer MEDICARE | LOC: M PAIN 16:00 | PROVIDERS: ATTEND Nurse Practitioner Family | DX: M47.812 Spondylosis without myelopathy or radiculopathy, cervical region (principal); M96.1 Postlaminectomy syndrome, not elsewhere classified; G89.29 Other chronic pain; M54.2 Cervicalgia; M79.7 Fibromyalgia; M54.50 Low back pain, unspecified; K21.9 Gastro-esophageal reflux disease without esophagitis; E03.9 Hypothyroidism, unspecified; E11.9 Type 2 diabetes mellitus without complications; Z79.84 Long term (current) use of oral hypoglycemic drugs; Z79.891 Long term (current) use of opiate analgesic; Z79.899 Other long term (current) drug therapy; Z88.8 Allergy status to other drugs, medicaments and biological substances ==

== ENCOUNTER → 2023-05-08 | Outpatient (REF) | payer MEDICARE | LOC: M PLALAB 15:47 | PROVIDERS: ATTEND Obstetrics & Gynecology | DX: R87.610 Atypical squamous cells of undetermined significance on cytologic smear of cervix (ASC-US) (principal) ==

== ENCOUNTER → 2023-07-01 | Outpatient (CLI) | payer MEDICARE | LOC: M PAIN 17:30 | PROVIDERS: ATTEND Nurse Practitioner Family | DX: M79.12 Myalgia of auxiliary muscles, head and neck (principal); G89.29 Other chronic pain; M54.12 Radiculopathy, cervical region; M54.16 Radiculopathy, lumbar region; K21.9 Gastro-esophageal reflux disease without esophagitis; E03.9 Hypothyroidism, unspecified; E11.9 Type 2 diabetes mellitus without complications; Z79.890 Hormone replacement therapy; Z79.84 Long term (current) use of oral hypoglycemic drugs; Z79.891 Long term (current) use of opiate analgesic; Z79.899 Other long term (current) drug therapy; Z88.8 Allergy status to other drugs, medicaments and biological substances ==

== ENCOUNTER → 2023-08-16 | Outpatient (CLI) | payer MEDICARE ==
[~2023-08-16] MED LIST changes: +NORCO, ANEXSIA 5/325MG TABLET (HYDROcodone/ACETAMINOPHEN) As Ordered ONE; +diazePAM 5MG TABLET As Ordered ONE
== END ==
LOC: M PAIN 10:00
PROVIDERS: ATTEND Anesthesiology
DX: M79.18 Myalgia, other site (principal); G89.29 Other chronic pain; M54.12 Radiculopathy, cervical region; M54.50 Low back pain, unspecified; M54.16 Radiculopathy, lumbar region; K21.9 Gastro-esophageal reflux disease without esophagitis; E03.9 Hypothyroidism, unspecified; E11.9 Type 2 diabetes mellitus without complications; Z79.890 Hormone replacement therapy; Z79.84 Long term (current) use of oral hypoglycemic drugs; Z79.891 Long term (current) use of opiate analgesic; Z79.899 Other long term (current) drug therapy; Z88.8 Allergy status to other drugs, medicaments and biological substances
CPT/HCPCS: 20552; J0665

== ENCOUNTER → 2023-09-16 | Outpatient (CLI) | payer MEDICARE ==
[~2023-09-16] MED LIST changes: -NORCO, ANEXSIA 5/325MG TABLET (HYDROcodone/ACETAMINOPHEN) As Ordered ONE; -diazePAM 5MG TABLET As Ordered ONE
== END ==
LOC: M PAIN 11:15
PROVIDERS: ATTEND Nurse Practitioner Family
DX: M54.6 Pain in thoracic spine (principal); G89.29 Other chronic pain; M79.7 Fibromyalgia; M54.50 Low back pain, unspecified; M54.2 Cervicalgia; K21.9 Gastro-esophageal reflux disease without esophagitis; E03.9 Hypothyroidism, unspecified; E11.9 Type 2 diabetes mellitus without complications; Z79.84 Long term (current) use of oral hypoglycemic drugs; Z79.891 Long term (current) use of opiate analgesic; Z79.890 Hormone replacement therapy; Z79.899 Other long term (current) drug therapy; Z88.8 Allergy status to other drugs, medicaments and biological substances

== ENCOUNTER → 2023-09-25 | Outpatient (CLI) | payer MEDICARE ==
[~2023-09-25] MED LIST changes: +GASTROGRAFIN SOLUTION 30ML As Ordered ONE
== END ==
LOC: M RAD 13:02
PROVIDERS: ATTEND Nurse Practitioner Family
DX: R10.9 Unspecified abdominal pain (principal)
CPT/HCPCS: 74178; Q9963

== ENCOUNTER → 2023-10-18 | Outpatient (CLI) | payer MEDICARE ==
[~2023-10-18] MED LIST changes: -GASTROGRAFIN SOLUTION 30ML As Ordered ONE
== END ==
LOC: M PLAIMG 14:24
PROVIDERS: ATTEND Nurse Practitioner Family
DX: M54.14 Radiculopathy, thoracic region (principal)

== ENCOUNTER → 2023-10-25 | Outpatient (CLI) | payer MEDICARE | LOC: M PAIN 15:00 | PROVIDERS: ATTEND Nurse Practitioner Family | DX: M47.814 Spondylosis without myelopathy or radiculopathy, thoracic region (principal); Z79.891 Long term (current) use of opiate analgesic; G89.29 Other chronic pain; M54.12 Radiculopathy, cervical region; M54.16 Radiculopathy, lumbar region; M79.7 Fibromyalgia; K21.9 Gastro-esophageal reflux disease without esophagitis; E03.9 Hypothyroidism, unspecified; E11.9 Type 2 diabetes mellitus without complications; Z79.890 Hormone replacement therapy; Z79.899 Other long term (current) drug therapy; Z88.8 Allergy status to other drugs, medicaments and biological substances ==

== ENCOUNTER → 2023-12-11 | Outpatient (CLI) | payer MEDICARE | LOC: M PAIN 14:30 | PROVIDERS: ATTEND Anesthesiology | DX: M47.22 Other spondylosis with radiculopathy, cervical region (principal); M79.7 Fibromyalgia; G89.29 Other chronic pain; M54.2 Cervicalgia; K21.9 Gastro-esophageal reflux disease without esophagitis; E03.9 Hypothyroidism, unspecified; E11.9 Type 2 diabetes mellitus without complications; Z79.890 Hormone replacement therapy; Z79.84 Long term (current) use of oral hypoglycemic drugs; Z79.891 Long term (current) use of opiate analgesic; Z79.899 Other long term (current) drug therapy; Z88.8 Allergy status to other drugs, medicaments and biological substances | CPT/HCPCS: 76000; G0463 ==

== ENCOUNTER → 2024-04-03 | Outpatient (CLI) | payer MEDICARE | LOC: M PAIN 15:00 | PROVIDERS: ATTEND Nurse Practitioner Family | DX: M54.6 Pain in thoracic spine (principal); M96.1 Postlaminectomy syndrome, not elsewhere classified; M47.812 Spondylosis without myelopathy or radiculopathy, cervical region; G89.29 Other chronic pain; M79.7 Fibromyalgia; M54.50 Low back pain, unspecified; M54.2 Cervicalgia; K21.9 Gastro-esophageal reflux disease without esophagitis; E03.9 Hypothyroidism, unspecified; E11.9 Type 2 diabetes mellitus without complications; Z79.890 Hormone replacement therapy; Z79.891 Long term (current) use of opiate analgesic; Z79.899 Other long term (current) drug therapy; Z88.8 Allergy status to other drugs, medicaments and biological substances ==

== ENCOUNTER → 2024-05-26 | Outpatient (CLI) | payer MEDICARE | LOC: M RAD 07:38 | PROVIDERS: ATTEND Nurse Practitioner Family | DX: R10.11 Right upper quadrant pain (principal) ==

== ENCOUNTER → 2024-08-31 | Outpatient (CLI) | payer MEDICARE ==
[~2024-08-31] MED LIST changes: +PROHANCE 279.3MG/ML 15ML VIAL ONE; +PROHANCE 279.3MG/ML 5ML VIAL ONE
== END ==
LOC: M PLAIMG 13:23
PROVIDERS: ATTEND Pain Medicine Interventional Pain Medicine
DX: M96.1 Postlaminectomy syndrome, not elsewhere classified (principal)
CPT/HCPCS: 72156; A9576

== ENCOUNTER → 2024-09-30 | Outpatient (REF) | payer MEDICARE ==
[~2024-09-30] MED LIST changes: -PROHANCE 279.3MG/ML 15ML VIAL ONE; -PROHANCE 279.3MG/ML 5ML VIAL ONE
[2024-10-02 14:53] LABS: HPV APTIMA Not Detected (Not Detected)
== END ==
LOC: M PLALAB 13:09
PROVIDERS: ATTEND Advanced Practice Midwife
DX: Z12.4 Encounter for screening for malignant neoplasm of cervix (principal); R87.610 Atypical squamous cells of undetermined significance on cytologic smear of cervix (ASC-US)
CPT/HCPCS: 87624; G0123

== ENCOUNTER → 2024-11-09 | Outpatient (REF) | payer MEDICARE ==
[2024-11-09 15:47] LABS: APPEARANCE, URINE CLEAR (CLEAR); BACTERIA, URINE AUTO NEGATIVE (NEGATIVE); BILIRUBIN, URINE AUTO NEGATIVE (NEGATIVE); BLOOD, URINE BLOOD NEGATIVE (NEGATIVE); GLUCOSE, URINE (UA) AUTO NEGATIVE (NEGATIVE); KETONE, URINE AUTO NEGATIVE (NEGATIVE); LEUKOCYTE ESTERASE, URINE AUTO NEGATIVE (NEGATIVE); MUCUS, URINE SMALL (NEGATIVE); NITRITE, URINE AUTO NEGATIVE (NEGATIVE); PROTEIN, URINE AUTO NEGATIVE (NEGATIVE); RBC, URINE AUTO 1 /HPF (0-3); SPECIFIC GRAVITY URINE AUTO 1.023 (1.002-1.035); SQUAMOUS EPITHELIAL CELL UR AU 2 /HPF (0-6); UROBILINOGEN, URINE AUTO 0.2 mg/dL (0.0-2.0); WBC, URINE AUTO 2 /HPF (0-3)
[2024-11-09 15:48] LABS: BASO # 0.0 10^3/uL (0.0-0.2); BASO % 0.4 % (0.0-1.0); EOS # 0.2 10^3/uL (0.0-0.5); EOS % 2.1 % (0.0-3.0); LYMPH # 2.3 10^3/uL (1.5-5.0); LYMPH % 29.7 % (24.0-44.0); MONO # 0.6 10^3/uL (0.0-0.8); MONO % 8.0 % (2.0-8.0); NEUTROPHILS # 4.6 10^3/uL (1.5-8.5); NEUTROPHILS % 59.7 % (36.0-66.0); PLATELET COUNT, AUTOMATED 282 10^3/uL (150-450)
[2024-11-09 15:52] LABS: ALT/SGPT 12.0 U/L (7.0-40); AST/SGOT 20.0 U/L (<34); CALCIUM LEVEL 7.8 MG/DL (8.3-10.6); CARBON DIOXIDE LEVEL 25.0 MMOL/L (20-31); CHLORIDE LEVEL 103.0 MMOL/L (98-107); CHOLESTEROL LEVEL 204.0 MG/DL (<200); CHOLESTEROL RISK RATIO 4.37 (<5); CREATININE FOR GFR 0.92 MG/DL (0.55-1.30); GLOMERULAR FILTRATION RATE 70.0 (>45); LDL CHOLESTEROL 129.6 MG/DL (<100); NON-HDL-C 157.4 MG/DL; POTASSIUM SERUM 3.7 MMOL/L (3.5-5.1); SODIUM LEVEL 137.0 MMOL/L (136-145); TRIGLYCERIDES LEVEL 139.0 MG/DL (<150)
[2024-11-09 15:54] LABS: TOTAL 25(OH) VITAMIN D 25.3 NG/ML (20.0-100.0)
[2024-11-09 16:08] LABS: ESTIMATED AVERAGE GLUCOSE 105.0 MG/DL (60-110)
[2024-11-09 16:15] LABS: CREATININE, URINE 164.4 MG/DL
[2024-11-09 17:21] LABS: MALB URINE SIEMENS 3.0 MG/L
[2024-11-09 20:08] LABS: MAU/CREAT RATIO 0.0 MCG/MG (0.0-30.0)
== END ==
LOC: M SFHCLERA 11:32
PROVIDERS: ATTEND Internal Medicine
DX: E11.65 Type 2 diabetes mellitus with hyperglycemia (principal); E03.8 Other specified hypothyroidism

== ENCOUNTER → 2024-12-10 | Outpatient (REF) | payer MEDICARE ==
[2024-12-10 20:09] LABS: FREE T4 1.26 NG/DL (0.89-1.76)
== END ==
LOC: M SFHCLERA 11:27
PROVIDERS: ATTEND Internal Medicine
DX: E03.8 Other specified hypothyroidism (principal)

== ENCOUNTER → 2024-12-10 | Outpatient (CLI) | payer MEDICARE | LOC: M RAD 15:11 | PROVIDERS: ATTEND Student in an Organized Health Care Education/Training Program | DX: R09.89 Other specified symptoms and signs involving the circulatory and respiratory systems (principal) ==

== ENCOUNTER → 2025-02-09 | Outpatient (REF) | payer MEDICARE, MEDICAID ==
[2025-02-09 18:52] LABS: FREE T4 1.43 NG/DL (0.89-1.76)
== END ==
LOC: M SFHCLERA 14:35
PROVIDERS: ATTEND Internal Medicine
DX: E03.8 Other specified hypothyroidism (principal)